=== PATIENT | male | born 1950 | race Caucasian/White ===

== ENCOUNTER 2017-04-11 01:15 | Inpatient (IN) | payer BC, OTHER ==
[2017-04-11] MEDS ORDERED: hydrALAZINE HCL 20 MG/ML 1 ML VIAL IVP STA (01:32)
--- NOTE | 2017-04-11 01:51 | ED ---
General Adult HPI - General Chief complaint: Chest Pain Stated complaint: Chest Pain Time Seen by Provider: 04/11/17 01:23 Source: patient, family, RN notes reviewed Mode of arrival: ambulatory Limitations: no limitations - History of Present Illness Initial comments: 66-year-old male presents for evaluation chest pain. Patient had 2 episodes of sharp left sided chest pain. These began at approximately 8 PM. He then developed some chest tightness which was substernal. This did radiate to his left arm. He was at rest during the symptoms. He currently has no chest pain. Denies shortness of breath. Denies nausea vomiting or diarrhea. He did have one episode of lightheadedness several weeks ago which was not associated with chest pain. Patient does have significant family history of coronary artery disease, his father at age 55 of heart attack. He is a smoker. Past medical history includes hypertension. Patient denies any leg swelling or calf tenderness. No nausea vomiting or diarrhea. No abdominal pain. - Related Data Home Medications Medication Instructions Recorded Confirmed Aspirin [Adult Low Dose Aspirin EC] 81 mg PO DAILY 06/16/16 04/11/17 Lisinopril [Zestril] 20 mg PO BID 06/16/16 04/11/17 Omeprazole 20 mg PO DAILY 06/16/16 04/11/17 Allergies Allergy/AdvReac Type Severity Reaction Status Date / Time No Known Allergies Allergy Verified 04/11/17 01:21 Review of Systems ROS Statement: Those systems with pertinent positive or pertinent negative responses have been documented in the HPI. ROS Other: All systems not noted in ROS Statement are negative. Past Medical History Past Medical History: Hypertension History of Any Multi-Drug Resistant Organisms: None Reported Past Surgical History: Orthopedic Surgery Additional Past Surgical History / Comment(s): RIGHT LEG SURGERY, CYST REMOVED FROM LEFT LEG Past Anesthesia/Blood Transfusion Reactions: No Reported Reaction Past Psychological History: No Psychological Hx Reported Smoking Status: Current every day smoker Past Alcohol Use History: Rare Past Drug Use History: None Reported - Past Family History Mother Family Medical History: No Reported History General Exam Limitations: no limitations General appearance: alert, in no apparent distress Head exam: Present: atraumatic, normocephalic Eye exam: Present: normal appearance, PERRL ENT exam: Present: normal exam, normal oropharynx, mucous membranes moist Neck exam: Present: normal inspection. Absent: tenderness, meningismus Respiratory exam: Present: normal lung sounds bilaterally. Absent: respiratory distress, wheezes Cardiovascular Exam: Present: regular rate, normal rhythm GI/Abdominal exam: Present: soft. Absent: distended, tenderness Extremities exam: Present: normal inspection, normal capillary refill. Absent: pedal edema Neurological exam: Present: alert, oriented X3, CN II-XII intact. Absent: motor sensory deficit Psychiatric exam: Present: normal affect, normal mood Skin exam: Present: warm, dry. Absent: cyanosis, diaphoretic Course Vital Signs 04/11/17 04/11/17 04/11/17 01:18 01:30 01:32 Temperature 97.7 F Pulse Rate 60 58 L Respiratory 18 17 Rate Blood Pressure 199/95 216/105 204/91 O2 Sat by Pulse 100 97 Oximetry 04/11/17 04/11/17 04/11/17 01:55 02:30 03:00 Temperature Pulse Rate 55 L 62 62 Respiratory 17 16 17 Rate Blood Pressure 172/84 152/77 157/86 O2 Sat by Pulse 95 97 96 Oximetry EKG Findings - EKG Comments: EKG Findings:: EKG shows sinus bradycardia with a ventricular rate of 56,. 164 , QRS duration 76, QTC 403, there is no ST segment elevation or depression Medical Decision Making - Medical Decision Making 66-year-old male with past medical history of hypertension, and current tobacco use presents with left-sided chest pain. Initially sharp in nature then progressed to central pressure. Pain is currently resolved. He has no chest pain while the emergency department. EKG shows sinus bradycardia rate of 56, no signs of ischemia or infarction. Laboratory studies including CBC, CMP, and cardiac enzymes unremarkable. Patient is given an aspirin in the emergency department. Chest x-ray shows no acute findings. Patient does several risk factors, and family history of CAD. Patient will be placed in observation for cardiology evaluation. Diagnosis: Chest pain - Lab Data Result diagrams: 04/11/17 01:38 04/11/17 01:38 Lab Results 04/11/17 04/11/17 04/11/17 Range/Units 01:38 01:38 01:38 WBC 9.6 (3.8-10.6) k/uL RBC 4.91 (4.30-5.90) m/uL Hgb 14.9 (13.0-17.5) gm/dL Hct 45.1 (39.0-53.0) % MCV 91.9 (80.0-100.0) fL MCH 30.2 (25.0-35.0) pg MCHC 32.9 (31.0-37.0) g/dL RDW 14.2 (11.5-15.5) % Plt Count 503 H (150-450) k/uL Neutrophils % 45 % Lymphocytes % 39 % Monocytes % 9 % Eosinophils % 4 % Basophils % 1 % Neutrophils # 4.3 (1.3-7.7) k/uL Lymphocytes # 3.8 (1.0-4.8) k/uL Monocytes # 0.8 (0-1.0) k/uL Eosinophils # 0.4 (0-0.7) k/uL Basophils # 0.1 (0-0.2) k/uL PT (9.0-12.0) sec INR (<1.2) APTT (22.0-30.0) sec D-Dimer (<0.60) mg/L FEU Sodium 138 (137-145) mmol/L Potassium 4.2 (3.5-5.1) mmol/L Chloride 105 (98-107) mmol/L Carbon Dioxide 24 (22-30) mmol/L Anion Gap 9 mmol/L BUN 17 (9-20) mg/dL Creatinine 0.90 (0.66-1.25) mg/dL Est GFR (MDRD) Af Amer >60 (>60 ml/min/1.73 sqM) Est GFR (MDRD) Non-Af >60 (>60 ml/min/1.73 sqM) Glucose 100 H (74-99) mg/dL Calcium 10.1 (8.4-10.2) mg/dL Magnesium 2.0 (1.6-2.3) mg/dL Total Bilirubin 0.5 (0.2-1.3) mg/dL AST 20 (17-59) U/L ALT 39 (21-72) U/L Alkaline Phosphatase 71 (38-126) U/L Total Creatine Kinase 86 (55-170) U/L CK-MB (CK-2) 1.4 (0.0-2.4) ng/mL CK-MB (CK-2) Rel Index 1.6 Troponin I <0.012 (0.000-0.034) ng/mL NT-Pro-B Natriuret Pep pg/mL Total Protein 6.5 (6.3-8.2) g/dL Albumin 3.8 (3.5-5.0) g/dL Lipase 156 (23-300) U/L 04/11/17 04/11/17 Range/Units 01:38 01:38 WBC (3.8-10.6) k/uL RBC (4.30-5.90) m/uL Hgb (13.0-17.5) gm/dL Hct (39.0-53.0) % MCV (80.0-100.0) fL MCH (25.0-35.0) pg MCHC (31.0-37.0) g/dL RDW (11.5-15.5) % Plt Count (150-450) k/uL Neutrophils % % Lymphocytes % % Monocytes % % Eosinophils % % Basophils % % Neutrophils # (1.3-7.7) k/uL Lymphocytes # (1.0-4.8) k/uL Monocytes # (0-1.0) k/uL Eosinophils # (0-0.7) k/uL Basophils # (0-0.2) k/uL PT 10.2 (9.0-12.0) sec INR 1.0 (<1.2) APTT 25.0 (22.0-30.0) sec D-Dimer 0.50 (<0.60) mg/L FEU Sodium (137-145) mmol/L Potassium (3.5-5.1) mmol/L Chloride (98-107) mmol/L Carbon Dioxide (22-30) mmol/L Anion Gap mmol/L BUN (9-20) mg/dL Creatinine (0.66-1.25) mg/dL Est GFR (MDRD) Af Amer (>60 ml/min/1.73 sqM) Est GFR (MDRD) Non-Af (>60 ml/min/1.73 sqM) Glucose (74-99) mg/dL Calcium (8.4-10.2) mg/dL Magnesium (1.6-2.3) mg/dL Total Bilirubin (0.2-1.3) mg/dL AST (17-59) U/L ALT (21-72) U/L Alkaline Phosphatase (38-126) U/L Total Creatine Kinase (55-170) U/L CK-MB (CK-2) (0.0-2.4) ng/mL CK-MB (CK-2) Rel Index Troponin I (0.000-0.034) ng/mL NT-Pro-B Natriuret Pep 133 pg/mL Total Protein (6.3-8.2) g/dL Albumin (3.5-5.0) g/dL Lipase (23-300) U/L Disposition Clinical Impression: Chest pain Disposition: ADMITTED IP TO THIS [facility] Condition: Stable Referrals: Forest Melara DO [Primary Care Provider] - 1-2 days Decision to Admit Reason: Admit from EC Decision Date: 04/11/17 Decision Time: 03:37
[2017-04-11 01:55] LABS: Basophils # (A) 0.1 k/uL (0-0.2); Basophils % (A) 1 %; CH 31.5; CHCM 34.5; Eosinophils # (A) 0.4 k/uL (0-0.7); Eosinophils % (A) 4 %; HCT 45.1 % (39.0-53.0); HGB 14.9 gm/dL (13.0-17.5); Luc # (Auto) 0.22; Luc % (Auto) 2; Lymphocytes # (A) 3.8 k/uL (1.0-4.8); Lymphocytes % (A) 39 %; MCH 30.2 pg (25.0-35.0); MCHC 32.9 g/dL (31.0-37.0); MCV 91.9 fL (80.0-100.0); Mean Platelet Volume 6.7; Monocytes # (A) 0.8 k/uL (0-1.0); Monocytes % (A) 9 %; Neutrophils # (A) 4.3 k/uL (1.3-7.7); Neutrophils % (A) 45 %; RBC 4.91 m/uL (4.30-5.90); RDW 14.2 % (11.5-15.5); WBC 9.6 k/uL (3.8-10.6); WBC (Perox) 9.14
[2017-04-11 01:59] LABS: ALT 39 U/L (21-72); AST 20 U/L (17-59); Alkaline Phosphatase 71 U/L (38-126); Anion Gap 9 mmol/L; Blood Urea Nitrogen 17 mg/dL (9-20); Calcium 10.1 mg/dL (8.4-10.2); Carbon Dioxide 24 mmol/L (22-30); Chloride 105 mmol/L (98-107); Glucose 100 mg/dL (74-99); Non-African American GFR(MDRD) >60 (>60 ml/min/1.73 sqM); Potassium 4.2 mmol/L (3.5-5.1); Sodium 138 mmol/L (137-145); Total Bilirubin 0.5 mg/dL (0.2-1.3); Total Protein 6.5 g/dL (6.3-8.2)
[2017-04-11 02:04] LABS: Prothrombin Time 10.2 sec (9.0-12.0)
[2017-04-11 02:09] LABS: Creatine Kinase 86 U/L (55-170)
[2017-04-11 02:22] LABS: Creatine Kinase MB 1.4 ng/mL (0.0-2.4); Troponin I <0.012 ng/mL (0.000-0.034)
--- NOTE | 2017-04-11 02:44 | XR ---
EXAM: XR Chest, 2 Views CLINICAL HISTORY: Reason: Chest Pain TECHNIQUE: Frontal and lateral views of the chest. COMPARISON: 06/16/16 FINDINGS: Lungs: Unremarkable. No consolidation. Pleural space: Unremarkable. No pneumothorax. Heart: Unremarkable. No cardiomegaly. Mediastinum: Unremarkable. Bones/joints: Unremarkable. IMPRESSION: Normal chest x-rays.
[2017-04-11] MEDS ORDERED: ASPIRIN 325 MG TAB PO STA (03:31)
[2017-04-11] MEDS ORDERED: NALOXONE 0.4 MG/ML 1 ML VIAL IV PRN (03:32)
[2017-04-11] MEDS ORDERED: ONDANSETRON 4 MG/2 ML VIAL IVP PRN (03:32)
[2017-04-11] MEDS ORDERED: MORPHINE SULFATE 4 MG/ML SYRINGE IV PRN (03:32)
[2017-04-11] MEDS: SODIUM CHLORIDE 0.9% 1,000 ML IV SCH ×2 (03:52→18:10)
[2017-04-11 04:42] VITALS: BMI 30.9
[2017-04-11 07:24] LABS: Creatine Kinase 75 U/L (55-170)
[2017-04-11 07:35] LABS: Creatine Kinase MB 1.5 ng/mL (0.0-2.4); Troponin I <0.012 ng/mL (0.000-0.034)
[2017-04-11] MEDS: ASPIRIN 81 MG CHEW PO SCH (11:41)
[2017-04-11] MEDS: LISINOPRIL 20 MG TAB PO SCH ×2 (11:41→21:21)
[2017-04-11 11:45] LABS: Cholesterol 290 mg/dL (<200); HDL Cholesterol 25 mg/dL (40-60)
--- NOTE | 2017-04-11 12:02 | P.STRESS ---
- Stress Test Note Stress Test Results/Findings: Exam Performed: stress test Exam Date: 04/11/17 Reason for Exam: cp Height: 6 ft Weight: 103.4 kg Protocol: Stage: Duration of Exercise: 8 min Resting Heart Rate: 76 Resting Blood Pressure: 134/69 Maximum Achieved Heart Rate: 155 Maximum Achieved Blood Pressure: 214/76 85% PMHR: 145 100% PMHR: 170 METS: 9.3 Technologist Comment: Stress Test Results/Findings: This 66-year-old gentleman exercised for 7 min achieving 85% of the predicted heart rate. EKG taken during exercise showed about 1- 1.[address] depression in the inferolateral leads. These changes were not associated with any chest pain but patient became short of breath. These changes persisted for about 8-10 minutes in the post exercise period. Echo data: Baseline echo images showed normal wall motion and thickening. Exercise echo images are suboptimal and wall motion abnormalities in the inferobasal and inferoseptal wall cannot be excluded. FINAL IMPRESSION: #1. Probably abnormal stress test #2. Patient did not experience any chest pain. #3. Patient became short of breath. #4. Ischemia in the inferobasal and insufflated cannot be excluded on the stress echocardiogram because of suboptimal views
--- NOTE | 2017-04-11 13:00 | ECHOF ---
Referral Reason:chest pain MEASUREMENTS -------- HEIGHT: 180.3 cm WEIGHT: 103.0 kg BP: 158/78 IVSd: 0.9 cm (0.6 - 1.1) LVIDd: 4.5 cm (3.9 - 5.3) LVPWd: 1.3 cm (0.6 - 1.1) IVSs: 1.8 cm LVIDs: 2.7 cm LVPWs: 1.4 cm Ao Diam: 3.5 cm (2.0 - 3.7) AV Cusp: 2.0 cm (1.5 - 2.6) LA Diam: 1.9 cm (2.7 - 3.8) MV EXCURSION: 18.742 mm (> 18.000) MV EF SLOPE: 92 mm/s (70 - 150) EPSS: 0.3 cm MV E Franklin: 0.61 m/s MV DecT: 292 ms MV A Franklin: 0.58 m/s MV E/A Ratio: 1.04 RAP: 5.00 mmHg RVSP: 16.42 mmHg FINDINGS -------- Sinus rhythm. This was a technically adequate study. There is borderline concentric left ventricular hypertrophy. Overall left ventricular systolic function is normal with, an EF between 55 - 60 %. The right ventricle is normal in size and function. The left atrium is normal in size. The right atrium is normal in size. The aortic valve is trileaflet, and appears structurally normal. No aortic stenosis or regurgitation. Mild mitral regurgitation is present. Mild tricuspid regurgitation present. The right ventricular systolic pressure, as measured by Doppler, is 16.42mmHg. Pulmonic valve appears structurally normal. The aortic root size is normal. The pericardium is normal. CONCLUSIONS -------- 1. Sinus rhythm. 2. Mild tricuspid regurgitation present. 3. The right ventricular systolic pressure, as measured by Doppler, is 16.42mmHg. 4. Pulmonic valve appears structurally normal. 5. The aortic root size is normal. 6. The pericardium is normal. 7. This was a technically adequate study. 8. There is borderline concentric left ventricular hypertrophy. 9. Overall left ventricular systolic function is normal with, an EF between 55 - 60 %. 10. The right ventricle is normal in size and function. 11. The left atrium is normal in size. 12. The right atrium is normal in size. 13. The aortic valve is trileaflet, and appears structurally normal. No aortic stenosis or regurgitation. 14. Mild mitral regurgitation is present. PREMI[employer] C[employer] CANCELLATION CLERK: Velia Reina RDCS
[2017-04-11 14:20] LABS: Creatine Kinase 103 U/L (55-170)
[2017-04-11 14:32] LABS: Creatine Kinase MB 1.5 ng/mL (0.0-2.4); Troponin I <0.012 ng/mL (0.000-0.034)
--- NOTE | 2017-04-11 14:38 | P.CRDCN ---
History of Present Illness Consult date: 04/11/17 History of present illness: This is a 66-year-old male. Past medical history significant for hypertension, hyperlipidemia and chronic tobacco abuse. The patient states he has attempted to take different cholesterol medication and could not tolerate any periods at this time he does not take any cholesterol medication. He currently takes lisinopril 20 mg twice a day omeprazole 20 mg daily and aspirin 81 mg daily.. Patient presents with complaints of sharp stabbing pain to the left chest wall at approximately 8 PM last night while sitting down. He states this pain went away immediately on its own. Hours later he noticed a heaviness in the mid sternal region very mild associated with some left arm pain. He states he has noticed some left arm soreness over the previous couple of days but didn't associated with anything at the time. The pain was ongoing and lasted for most of the night. It has decreased in nature but is still there. He denies associated shortness of breath, dizziness, nausea, palpitations or vomiting. The pain is not reproducible and not associated with deep inspiration. EKG done shows sinus bradycardia with non-specific ST abnormalities, rate of 56 beats per minute. Comparison to an EKG from May 2016 and this appears consistent. Hemoglobin 14.9, platelets 503, potassium 4.2, BUN and 17, creatinine 0.90, d- dimer 0.50 and BNP 133, troponins negative 2. Chest x-ray showed no acute cardiopulmonary process. Review of Systems REVIEW OF SYSTEMS: Mild chest discomfort. No shortness of breath. No diaphoresis. Denies headache, dizziness, blurred vision, double vision. No dyspnea on exertion. Patient denies any stomach discomfort. No nausea, vomiting. No hematochezia. No hematemesis. Denies any black stools or blood in his stools. No syncope. No palpitations. No cough. No recent fever or chills. No muscle weakness or numbness. Past Medical History Past Medical History: CVA/TIA, Hyperlipidemia, Hypertension Additional Past Medical History / Comment(s): GERD, TIA 8 yrs ago History of Any Multi-Drug Resistant Organisms: None Reported Past Surgical History: Orthopedic Surgery Additional Past Surgical History / Comment(s): RIGHT LEG SURGERY, CYST REMOVED FROM LEFT LEG Past Anesthesia/Blood Transfusion Reactions: No Reported Reaction Past Psychological History: No Psychological Hx Reported Smoking Status: Current every day smoker Past Alcohol Use History: Rare Past Drug Use History: None Reported - Past Family History Father Family Medical History: Myocardial Infarction ([place]) Additional Family Medical History / Comment(s): at 55 from [place] Mother Family Medical History: No Reported History Medications and Allergies Home Medications Medication Instructions Recorded Confirmed Type Aspirin [Adult Low Dose Aspirin EC] 81 mg PO DAILY 06/16/16 04/11/17 History Lisinopril [Zestril] 20 mg PO BID 06/16/16 04/11/17 History Omeprazole 20 mg PO DAILY 06/16/16 04/11/17 History Allergies Allergy/AdvReac Type Severity Reaction Status Date / Time No Known Allergies Allergy Verified 04/11/17 07:38 Physical Exam Vitals: Vital Signs Temp Pulse Pulse Resp BP BP Pulse Ox 04/11/17 08:00 98.1 F 63 16 145/88 96 04/11/17 04:59 159/80 04/11/17 04:10 97.9 F 59 L 16 170/88 97 04/11/17 04:00 58 L 16 04/11/17 03:47 58 L 17 153/86 97 04/11/17 03:00 62 17 157/86 96 04/11/17 02:30 62 16 152/77 97 04/11/17 01:55 55 L 17 172/84 95 04/11/17 01:32 58 L 17 204/91 97 04/11/17 01:30 216/105 04/11/17 01:18 97.7 F 60 18 199/95 100 Intake and Output 04/10/17 04/11/17 04/11/17 22:59 06:59 14:59 Other: Voiding Method Toilet Toilet # Voids 2 1 Weight 103.4 kg GENERAL: This is a 66-year-old male in no apparent distress at the time of my examination. HEENT: Head is atraumatic, normocephalic. Pupils are equal, round. Sclerae anicteric. Conjunctivae are clear. Mucous membranes of the mouth are moist. Neck is supple. There is no jugular venous distention. No carotid bruit is heard. LUNGS: Clear to auscultation no wheezes, rales or rhonchi. No chest wall tenderness is noted on palpation or with deep breathing. HEART: Regular rate and rhythm without murmurs, rubs or gallops. S1 and S2 heard. ABDOMEN: Soft, nontender. Bowel sounds are heard. No organomegaly noted. EXTREMITIES: 2+ peripheral pulses with no evidence of peripheral edema and no calf tenderness noted. NEUROLOGIC: Patient is awake, alert and oriented x3. Results 04/11/17 01:38 04/11/17 01:38 Cardiac Enzymes 04/11/17 04/11/17 04/11/17 Range/Units 01:38 01:38 06:32 AST 20 (17-59) U/L CK-MB (CK-2) 1.4 1.5 (0.0-2.4) ng/mL Troponin I <0.012 <0.012 (0.000-0.034) ng/mL Coagulation 04/11/17 Range/Units 01:38 PT 10.2 (9.0-12.0) sec APTT 25.0 (22.0-30.0) sec CBC 04/11/17 Range/Units 01:38 WBC 9.6 (3.8-10.6) k/uL RBC 4.91 (4.30-5.90) m/uL Hgb 14.9 (13.0-17.5) gm/dL Hct 45.1 (39.0-53.0) % Plt Count 503 H (150-450) k/uL Comprehensive Metabolic Panel 04/11/17 Range/Units 01:38 Sodium 138 (137-145) mmol/L Potassium 4.2 (3.5-5.1) mmol/L Chloride 105 (98-107) mmol/L Carbon Dioxide 24 (22-30) mmol/L BUN 17 (9-20) mg/dL Creatinine 0.90 (0.66-1.25) mg/dL Glucose 100 H (74-99) mg/dL Calcium 10.1 (8.4-10.2) mg/dL AST 20 (17-59) U/L ALT 39 (21-72) U/L Alkaline Phosphatase 71 (38-126) U/L Total Protein 6.5 (6.3-8.2) g/dL Albumin 3.8 (3.5-5.0) g/dL Current Medications Generic Name Dose Route Start Last Admin Trade Name Freq PRN Reason Stop Dose Admin Aspirin 81 mg 04/11/17 09:00 Aspirin PO DAILY REN Sodium Chloride 1,000 mls @ 75 mls/hr 04/11/17 03:45 04/11/17 03:52 Saline 0.9% IV 75 mls/hr .[id number] REN Administration Lisinopril 20 mg 04/11/17 09:00 Zestril PO BID REN Morphine Sulfate 4 mg 04/11/17 03:32 Morphine Sulfate (Inj) IV Q4HR PRN Severe Pain Naloxone HCl 0.2 mg 04/11/17 03:32 Narcan IV Q2M PRN Opioid Reversal Ondansetron HCl 4 mg 04/11/17 03:32 Zofran IVP Q8HR PRN Nausea And Vomiting Pantoprazole Sodium 40 mg 04/11/17 09:00 Protonix PO DAILY REN Intake and Output 04/10/17 04/11/17 04/11/17 22:59 06:59 14:59 Other: Voiding Method Toilet Toilet # Voids 2 1 Weight 103.4 kg 04/11/17 01:38 04/11/17 01:38 EKG Interpretations (text) EKG indicates sinus bradycardia heart rate [address] abnormality. Assessment and Plan Plan: ASSESSMENT 1. Chest pain PLAN Due to the nature and presentation of this patient's pain and is suspect that there is an acute coronary event occurring. The patient has several risk factors including obesity, hypertension, chronic tobacco abuse, hyper-lipidemia and significant family history. We have recommended patient undergo cardiac catheterization with Dr. Walsh. I have discussed the risks, benefits and alternative therapies for the above-mentioned procedure and for both sedation/ analgesia as well as necessary blood product administration, if indicated, as they pertain to this patient. The patient has indicated understanding and has requested to undergo a less invasive testing. We advised the patient of our recommendation that heart catheterization would be more definitive. The patient still states that he would prefer a stress test at this time. We will move forward with a stress echocardiogram as well as a full echocardiogram. Further recommendations to follow pending testing. Nurse Practitioner note has been reviewed, I agree with a documented findings and plan of care. Patient was seen and examined.
--- NOTE | 2017-04-11 14:41 | P.PN ---
Progress Note - Text Stress echocardiogram was abnormal. Patient did not experience any chest pain but he did become acutely short of breath. Ischemia i cannot be excluded. During peak exercise showed 1-1.[address] depression in the inferiorolateral leads. These changes persisted for 8-10 minutes into recovery. Echocardiogram reveals preserved left ventricular function with an ejection fraction of 55-60%, mild tricuspid regurgitation, borderline concentric left ventricular hypertrophy and mild mitral regurgitation. At this time we can recommend the patient move forward with heart catheterization to rule out an acute coronary event. This procedure was again discussed with the patient in great detail with his and son at the bedside. I have discussed the risks, benefits and alternative therapies for the above-mentioned procedure and for both sedation/analgesia as well as necessary blood product administration, if indicated, as they pertain to this patient. The patient has indicated understanding and will need some time to consider. At this time we will await the patient's decision as far as moving forward with the catheterization. We will place him nothing by mouth after midnight and tentatively scheduled the procedure for tomorrow morning.
[2017-04-11] MEDS ORDERED: ENOXAPARIN 80 MG/0.8 ML SYRINGE SQ STA (15:21)
[2017-04-11] MEDS ORDERED: SODIUM CHLORIDE 0.9% 1,000 ML in EMPTY BAG 1 BAG IV ONE (15:23)
[2017-04-11] MEDS ORDERED: ATORVASTATIN 80 MG TAB PO STA (15:23)
--- NOTE | 2017-04-11 15:39 | P.HPIM ---
History of Present Illness H&P Date: 04/11/17 Chief Complaint: Chest pain This is a 66-year-old male patient of Dr. Braden'marcos with a past medical history of TIA 8 years ago, hyperlipidemia, hypertension, and gastroesophageal reflux disease. Patient gives history that he had a jabbing pain in the left lateral anterior chest wall while he was sitting. It later felt a little bit heavy and he also complained of left elbow pain as well. Over the past month he has had little "pricks" of pain on and off as well as continued discomfort in the left elbow which is not similar to his arthritis. He states he's had a little shortness of breath. Patient came into [facility] emergency center for evaluation. Patient was placed in the observation unit and underwent stress test which was positive and he is scheduled tentatively for heart catheterization for tomorrow. Patient states that he believes he will undergo this treatment although he was hesitant. Troponins have been negative on 3 draws. Triglycerides 191, cholesterol 290, LDL 227, HDL 25. EKG was a sinus bradycardia with nonspecific ST abnormalities. Echocardiogram reveals EF 55-60%, mild tricuspid regurgitation, borderline concentric left ventricular hypertrophy, mild mitral regurgitation. Review of Systems All systems: negative Constitutional: Denies chills, Denies fever Eyes: denies blurred vision, denies pain Ears, nose, mouth and throat: Denies headache, Denies sore throat Cardiovascular: Reports chest pain, Denies shortness of breath Respiratory: Denies cough Gastrointestinal: Denies abdominal pain, Denies diarrhea, Denies nausea, Denies vomiting Musculoskeletal: Denies myalgias Integumentary: Denies pruritus, Denies rash Neurological: Denies numbness, Denies weakness Psychiatric: Denies anxiety, Denies depression Endocrine: Denies fatigue, Denies weight change Past Medical History Past Medical History: CVA/TIA, Hyperlipidemia, Hypertension Additional Past Medical History / Comment(s): GERD, TIA 8 yrs ago History of Any Multi-Drug Resistant Organisms: None Reported Past Surgical History: Orthopedic Surgery Additional Past Surgical History / Comment(s): RIGHT LOWER LEG ORIF, CYST REMOVED FROM LEFT LEG Past Anesthesia/Blood Transfusion Reactions: No Reported Reaction Past Psychological History: No Psychological Hx Reported Smoking Status: Current every day smoker Past Alcohol Use History: Rare Additional Past Alcohol Use History / Comment(s): Patient is a smoker one and half packs per day for 37 years. He denies any medical marijuana, marijuana, street drug use. He drinks alcohol rarely. He is retired from [employer] in [place] Past Drug Use History: None Reported - Past Family History Father Family Medical History: Myocardial Infarction ([place]) Additional Family Medical History / Comment(s): at 55 from [place] Mother Family Medical History: No Reported History Additional Family Medical History / Comment(s): Mother at age 95 with history of hypertension, coronary artery disease status post CABG 3 vessel at age 75. Brother(s) Additional Family Medical History / Comment(s): Patient has 2 brothers and is unsure of their past mental history. Sister(s) Additional Family Medical History / Comment(s): Patient had 7 sisters. 3 sisters have , one from ovarian cancer, 2 from breast cancer. Medications and Allergies Home Medications Medication Instructions Recorded Confirmed Type Aspirin [Adult Low Dose Aspirin EC] 81 mg PO DAILY 06/16/16 04/11/17 History Lisinopril [Zestril] 20 mg PO BID 06/16/16 04/11/17 History Omeprazole 20 mg PO DAILY 06/16/16 04/11/17 History Allergies Allergy/AdvReac Type Severity Reaction Status Date / Time No Known Allergies Allergy Verified 04/11/17 07:38 Physical Exam Vitals: Vital Signs Temp Pulse Pulse Resp BP BP Pulse Ox 04/11/17 12:40 78 16 161/89 94 L 04/11/17 12:00 97.8 F 78 16 173/85 97 04/11/17 08:00 98.1 F 63 16 145/88 96 04/11/17 04:59 159/80 04/11/17 04:10 97.9 F 59 L 16 170/88 97 04/11/17 04:00 58 L 16 04/11/17 03:47 58 L 17 153/86 97 04/11/17 03:00 62 17 157/86 96 04/11/17 02:30 62 16 152/77 97 04/11/17 01:55 55 L 17 172/84 95 04/11/17 01:32 58 L 17 204/91 97 04/11/17 01:30 216/105 04/11/17 01:18 97.7 F 60 18 199/95 100 Intake and Output 08/20/17 08/21/17 08/21/17 22:59 06:59 14:59 Other: Voiding Method Toilet Toilet # Voids 2 1 Weight 103.4 kg Gen: This is a 66-year-old male. He is in bed and appears to be comfortable. No acute distress noted. HEENT: Head is atraumatic, normocephalic. Pupils equal, round. Sclerae is anicteric. NECK: Supple. No JVD. No lymphadenopathy. No thyromegaly. LUNGS: Clear to auscultation. No wheezes or rhonchi. No intercostal retractions. HEART: Regular rate and rhythm. No murmur. ABDOMEN: Soft. Bowel sounds are present. No masses. No tenderness. EXTREMITIES: No pedal edema. No calf tenderness. Dorsalis pedis +2 bilaterally. NEUROLOGICAL: Patient is awake, alert and oriented x3. Cranial nerves 2 through 12 are grossly intact. Results CBC & Chem 7: 04/11/17 01:38 04/11/17 01:38 Labs: Abnormal Lab Results - Last 24 Hours (Table) 04/11/17 04/11/17 04/11/17 Range/Units 01:38 01:38 06:32 Plt Count 503 H (150-450) k/uL Glucose 100 H (74-99) mg/dL Triglycerides 191 H (<150) mg/dL Cholesterol 290 H (<200) mg/dL LDL Cholesterol, Calc 227 H (0-99) mg/dL HDL Cholesterol 25 L (40-60) mg/dL Thrombosis Risk Factor Assmnt - DVT/VTE Prophylaxis DVT/VTE Prophylaxis: Pharmacologic Prophylaxis ordered - Choose All That Apply Each Risk Factor Represents 2 Points: Age 61-74 years Thrombosis Risk Factor Assessment Total Risk Factor Score: 2 Thrombosis Risk Factor Assessment Level: Low Risk Assessment and Plan Plan: 1. Chest pain, failed stress test. Cardiac catheterization tomorrow. Patient is followed by cardiology. 3 troponins are negative. Continue aspirin 81 mg daily. 2. Hyperlipidemia. Patient has been started on Lipitor 80 mg daily. 3. Hypertension. Continue lisinopril 20 mg twice daily, patient started on metoprolol tartrate 25 mg twice daily. 4. Gastroesophageal reflux disease. Protonix. Patient will be admitted to the hospital for a minimum of 2 night stay. Discharge plan: He turned home Impression and plan of care have been directed as dictated by the signing physician. More Pacheco nurse practitioner acting as scribe for signing physician.
[2017-04-11] MEDS: PANTOPRAZOLE 40 MG TABLET PO SCH (16:21)
[2017-04-11] MEDS: METOPROLOL TARTRATE 25 MG TAB PO SCH (16:25)
[2017-04-12] MEDS ORDERED: ASPIRIN 325 MG TAB PO ONE ×2 (06:00)
[2017-04-12] MEDS: SODIUM CHLORIDE 0.9% 1,000 ML IV SCH ×5 (06:47→23:06)
[2017-04-12] MEDS: METOPROLOL TARTRATE 25 MG TAB PO SCH ×2 (07:28→20:06)
[2017-04-12] MEDS: ASPIRIN 81 MG CHEW PO SCH (07:28)
[2017-04-12] MEDS: PANTOPRAZOLE 40 MG TABLET PO SCH (07:28)
[2017-04-12] MEDS: LISINOPRIL 20 MG TAB PO SCH ×2 (07:28→20:06)
[2017-04-12] MEDS ORDERED: LIDOCAINE 2% INJ 20 MG/ML (20 ML MDV) ONE (08:34)
[2017-04-12] MEDS ORDERED: SODIUM CHLORIDE 0.9% 1,000 ML IV ONE (08:49)
[2017-04-12] MEDS ORDERED: MIDAZOLAM 2 MG/2 ML VIAL ONE (08:50)
[2017-04-12] MEDS ORDERED: fentaNYL (PF) 50 MCG/ML 2 ML AMP ONE (08:50)
[2017-04-12] MEDS ORDERED: fentaNYL (PF) 50 MCG/ML 2 ML AMP IV ONE (08:59)
[2017-04-12] MEDS ORDERED: MIDAZOLAM 2 MG/2 ML VIAL IV ONE (08:59)
[2017-04-12] MEDS ORDERED: LIDOCAINE 2% INJ 20 MG/ML SQ ONE (09:03)
--- NOTE | 2017-04-12 09:12 | ECHOS ---
Stress Test Results/Findings: Exam Performed: stress test Exam Date: 04/11/17 Reason for Exam: cp Height: 6 ft Weight: 103.4 kg Protocol: Stage: Duration of Exercise: 8 min Resting Heart Rate: 76 Resting Blood Pressure: 134/69 Maximum Achieved Heart Rate: 155 Maximum Achieved Blood Pressure: 214/76 85% PMHR: 145 100% PMHR: 170 METS: 9.3 Technologist Comment: Stress Test Results/Findings: This 66-year-old gentleman exercised for 7 min achieving 85% of the predicted heart rate. EKG taken during exercise showed about 1- 1.[address] depression in the inferolateral leads. These changes were not associated with any chest pain but patient became short of breath. These changes persisted for about 8-10 minutes in the post exercise period. Echo data: Baseline echo images showed normal wall motion and thickening. Exercise echo images are suboptimal and wall motion abnormalities in the inferobasal and inferoseptal wall cannot be excluded. FINAL IMPRESSION: #1. Abnormal stress test #2. Patient did not experience any chest pain. #3. Patient became short of breath. #4. Ischemia in the inferobasal and inferioseptal area cannot be excluded on the stress echocardiogram because of suboptimal views MTDD
[2017-04-12] MEDS ORDERED: NITROGLYCERIN OINT 1 INCH/GM PACKET TOPICAL ONE ×2 (09:20→09:25)
[2017-04-12] MEDS ORDERED: hydrALAZINE HCL 20 MG/ML 1 ML VIAL ONE (09:29)
[2017-04-12] MEDS ORDERED: hydrALAZINE HCL 20 MG/ML 1 ML VIAL IV ONE (09:32)
[2017-04-12] MEDS ORDERED: LABETALOL 5 MG/ML VIAL MDV IVP STA (09:45)
[2017-04-12] MEDS ORDERED: RX INFO: IV CONTRAST WAS GIVEN 1 EACH MISC MISCELLANE PRN (09:46)
[2017-04-12] MEDS ORDERED: ISOSORBIDE MONONITRATE ER 30 MG TAB.ER.24H PO STA (09:50)
[2017-04-12] MEDS ORDERED: NITROGLYCERIN SL TABS 0.4 MG TAB SUBLINGUAL PRN (09:51)
--- NOTE | 2017-04-12 09:59 | P.PCN ---
Date of Procedure: 04/12/17 Preoperative Diagnosis: Unstable angina and positive stress test Postoperative Diagnosis: Triple-vessel disease Procedure(s) Performed: Left heart catheterization with LV gram Implants: Indications for Procedure: Operative Findings: Description of Procedure: HISTORY: This is 66-year-old gentleman with history of hypertension smoking and family history of ischemic heart disease is admitted to the hospital with chest pain suggestive of possible unstable angina. His EKGs and cardiac enzymes were negative. Patient was evaluated by stress echocardiogram which showed positive findings. Patient is advised to have a cardiac catheterization for definitive diagnosis. CONSENT:I have discussed the risks, benefits and alternative therapies for the above-mentioned procedure and for both sedation/analgesia as well as necessary blood product administration, if indicated, as they pertain to this patient. The patient has indicated understanding and acceptance of the risks and procedures discussed. PROCEDURE: Patient was brought to the lab in a fasting state. Patient was given some IV sedation. The right groin is infiltrated with lidocaine and right femoral artery was entered using Seldinger technique. A 6-[place] catheter was left in place and selective coronary arteriography and left ventriculography was performed. Patient tolerated the procedure well. Femoral angiogram was performed and Angio-Seal was applied for hemostasis. No immediate complications were noted and patient was transferred to [facility] in a stable condition Conscious Sedation: Versed : 1 mg Fentanyl : 25 g Duration : 25 minutes HEMODYNAMICS: The aortic pressure is about 160-180/90 to 100. Left ankle end- diastolic pressure is 25. There was no gradient across the aortic valve. SELECTIVE CORONARY ARTERIOGRAPHY: [ LEFT MAIN: [Normal length with mild calcification. THE LEFT ANTERIOR DESCENDING CORONARY ARTERY: [Good caliber vessel with a diffuse disease and calcification in the proximal and midportion. There is about 80% eccentric lesion after the first diagonal and another 70% lesion at the origin of the second diagonal. THE LEFT CIRCUMFLEX AND IS CORONARY ARTERY: [This is a fair caliber vessel giving rise to 2 OM branches. The first OM branch has about 50-60% stenosis proximally. THE RIGHT CORONARY ARTERY: [This is totally occluded proximally. There are collaterals filling the distal right coronary artery. This seemed to be moderate in caliber LEFT VENTRICULOGRAPHY: [This is done in 30 right anterior oblique projection. This revealed normal-sized cardiac silhouette with preserved LV function. FINAL IMPRESSION: Triple-vessel disease with significant lesion in the mid LAD and also total occlusion of the RCA PLAN: films are reviewed with the DEANNE Estrella. It is felt that patient is better served with bypass surgery to the LAD and, to the right and probably OM branch of circumflex. PROGNOSIS: Fair with successful therapy.
[2017-04-12] MEDS: amLODIPine 5 MG TAB PO SCH (10:43)
[2017-04-12 12:14] LABS: Basophils # (A) 0.1 k/uL (0-0.2); Basophils % (A) 1 %; CH 30.7; CHCM 34.3; Eosinophils # (A) 0.1 k/uL (0-0.7); Eosinophils % (A) 1 %; HCT 44.1 % (39.0-53.0); HDW 2.47; HGB 15.2 gm/dL (13.0-17.5); Luc # (Auto) 0.16; Luc % (Auto) 2; Lymphocytes # (A) 2.1 k/uL (1.0-4.8); Lymphocytes % (A) 28 %; MCH 30.9 pg (25.0-35.0); MCHC 34.4 g/dL (31.0-37.0); MCV 89.8 fL (80.0-100.0); Monocytes # (A) 0.5 k/uL (0-1.0); Monocytes % (A) 7 %; Neutrophils # (A) 4.6 k/uL (1.3-7.7); Neutrophils % (A) 61 %; RBC 4.91 m/uL (4.30-5.90); RDW 13.4 % (11.5-15.5); WBC 7.6 k/uL (3.8-10.6)
[2017-04-12 12:22] LABS: ALT 32 U/L (21-72); AST 17 U/L (17-59); Alkaline Phosphatase 68 U/L (38-126); Anion Gap 7 mmol/L; Blood Urea Nitrogen 13 mg/dL (9-20); Calcium 9.8 mg/dL (8.4-10.2); Carbon Dioxide 22 mmol/L (22-30); Chloride 109 mmol/L (98-107); Glucose 88 mg/dL (74-99); Non-African American GFR(MDRD) >60 (>60 ml/min/1.73 sqM); Potassium 4.8 mmol/L (3.5-5.1); Sodium 138 mmol/L (137-145); Total Bilirubin 0.5 mg/dL (0.2-1.3); Total Protein 6.3 g/dL (6.3-8.2)
[2017-04-12 12:42] LABS: Prothrombin Time 10.5 sec (9.0-12.0)
[2017-04-12 12:43] LABS: Appearance,Urine Clear (Clear); Bilirubin,Urine Negative (Negative); Glucose,Urine (UA) Negative (Negative); Ketones,Urine Negative (Negative); Leukocyte Esterase,Urine Negative (Negative); Nitrite,Urine Negative (Negative); PH, Urine 7.5 (5.0-8.0); Protein,Urine Negative (Negative); Specific Gravity,Urine 1.023 (1.001-1.035); UA Billing (MACRO vs. MICRO) CHEM; Urobilinogen,Urine <2.0 mg/dL (<2.0)
--- NOTE | 2017-04-12 12:46 | P.GSCN ---
<Umair Briseno - Last Filed: 04/12/17 11:51> History of Present Illness Consult date: 04/12/17 Reason for Consult: Positive stress echocardiogram, and symptomatic triple-vessel coronary artery disease. Requesting physician: Wendi Walsh History of present illness: This is a 66-year-old gentleman who is followed by Dr. Forest Melara on an outpatient basis. He has a past medical history of hypertension, hyperlipidemia , TIA, chronic tobacco use any family history of early onset coronary artery disease as his father at age 55 from a myocardial infarction. The patient has had complaints of episodes chest pain off and on for the last 2 months. Recently, the patient's complaints of chest pain have progressively been getting worse and are increasing in frequency. On 04/11/2017 the patient presented to the emergency department here at [facility] with complaints of chest pain that came on while he was resting. His pain also radiated to his left arm and was associated with some shortness of breath. He denied any complaints of nausea, vomiting, dizziness or diaphoresis. He reports his chest pain was a sharp stabbing pain and was 5 out of 10 on the pain scale when he presented to the emergency department. Subsequently a 12- lead EKG was completed which showed bradycardia with nonspecific ST abnormalities, he had negative troponins 3, and his chest x-ray showed no abnormal findings. Subsequently the patient was evaluated by Dr. Walsh from cardiology associates recommended the patient undergo a stress echocardiogram. On 04/11/2017 the patient underwent a stress echocardiogram which showed about 1-1.[address] depression in his inferior lateral leads. The patient did not experience any chest pain during the stress test although had some shortness of breath. For further evaluation the patient was recommended to undergo a cardiac catheterization. On 04/12/2017 after obtaining consent the patient underwent a cardiac catheterization which demonstrated triple- vessel coronary artery disease with significant lesions to his mid left anterior descending coronary artery, and also a total occlusion of his right coronary artery. Due to the patient's presenting symptoms, positive stress test and cardiac catheterization results a consult was placed for Dr. Vale from cardiothoracic surgery to evaluate the patient. Review of Systems A 14 point review of systems was completed and was negative except for as mentioned in HPI. Past Medical History Past Medical History: CVA/TIA, Hearing Disorder / Deafness (right ear.), Hyperlipidemia, Hypertension Additional Past Medical History / Comment(s): GERD, TIA 8 yrs ago History of Any Multi-Drug Resistant Organisms: None Reported Past Surgical History: Orthopedic Surgery Additional Past Surgical History / Comment(s): RIGHT LEG SURGERY, CYST REMOVED FROM LEFT LEG, nasal surgery for deviated septum. Past Anesthesia/Blood Transfusion Reactions: No Reported Reaction Past Psychological History: No Psychological Hx Reported Smoking Status: Current every day smoker (Smokes 1 pack to 1-1/2 packs per day. He reports he has smoked for about 35 years.) Past Alcohol Use History: Rare (1 drink every 6 months.) Past Drug Use History: None Reported - Past Family History Father Family Medical History: Myocardial Infarction ([place]) Additional Family Medical History / Comment(s): at 55 from [place] Brother(s) Family Medical History: No Reported History Additional Family Medical History / Comment(s): Patient has 2 brothers and is unsure of their past mental history. Sister(s) Additional Family Medical History / Comment(s): Patient had 7 sisters. 3 sisters have , one from ovarian cancer at age 44, 2 from breast cancer 1 at age 60 and the other at age 55. Mother Family Medical History: Coronary Artery Disease (CAD), Hypertension Additional Family Medical History / Comment(s): Mother at age 95 with history of hypertension, coronary artery disease status post CABG 3 vessel at age 75. Medications and Allergies Home Medications Medication Instructions Recorded Confirmed Type Aspirin [Adult Low Dose Aspirin EC] 81 mg PO DAILY 06/16/16 04/11/17 History Lisinopril [Zestril] 20 mg PO BID 06/16/16 04/11/17 History Omeprazole 20 mg PO DAILY 06/16/16 04/11/17 History Allergies Allergy/AdvReac Type Severity Reaction Status Date / Time No Known Allergies Allergy Verified 04/11/17 07:38 Surgical - Exam Vital Signs Temp Pulse Resp BP Pulse Ox 97.7 F 60 18 199/95 100 04/11/17 01:18 04/11/17 01:18 04/11/17 01:18 04/11/17 01:18 04/11/17 01:18 - General well developed, well nourished, no distress, no pain - Eyes PERRL, normal ocular movement - ENT Hard of hearing to his right ear. normal pinna, normal nares, normal mucosa, no congestion - Neck no masses, no bruits, trachea midline, no lymphadectomy, no venous distension - Respiratory normal expansion, normal respiratory effort, clear to percussion, clear to auscultation - Cardiovascular Regular rhythm and rate. S1 and S2 present, negative for S3, gallop or murmur. Remote telemetry showing normal sinus rhythm heart rate 68. Varicosities to his right leg. - Abdomen Abdomen is nondistended, no organomegaly or guarding. Abdomen: soft, non tender, bowel sounds (Active bowel sounds all 4 abdominal quadrants.) - Genitourinary Deferred - Rectum Deferred - Integumentary no rash, no growths, no abnormal pigmentation - Neurologic normal coordination, normal sensation - Musculoskeletal normal gait, normal posture - Psychiatric oriented to time, oriented to person, oriented to place, speech is normal, memory intact Results - Labs 04/11/17 01:38 04/11/17 01:38 Abnormal Lab Results - Last 24 Hours (Table) 04/11/17 Range/Units 06:32 Triglycerides 191 H (<150) mg/dL Cholesterol 290 H (<200) mg/dL LDL Cholesterol, Calc 227 H (0-99) mg/dL HDL Cholesterol 25 L (40-60) mg/dL Diabetes panel 04/11/17 Range/Units 06:32 Triglycerides 191 H (<150) mg/dL HDL Cholesterol 25 L (40-60) mg/dL - Imaging Comments: Cardiac catheterization, stress echocardiogram and 2-D echocardiogram results reviewed. Chest x-ray: report reviewed, image reviewed EKG: image reviewed Assessment and Plan (1) Coronary artery disease Status: Acute (2) Hypertension Status: Acute (3) Hyperlipidemia Status: Acute (4) History of TIA (transient ischemic attack) Status: Acute (5) Family history of premature coronary artery disease Status: Acute (6) Nicotine dependence Status: Acute (7) Chest pain Status: Acute (8) Chest pressure Status: Acute Plan: The patient was seen and examined, preoperative testing has been ordered and the results are pending. Preoperative teaching was initiated and reinforced. I will discuss the case with Dr. Vale. More recommendations to follow as the preoperative testing has been reviewed and completed. Thank you Dr. Walsh for this consult and we look forward to working with you in the care of your patient. Time with Patient: Greater than 30 <Kory Black - Last Filed: 04/20/17 10:59> Surgical - Exam Vital Signs Temp Pulse Resp BP Pulse Ox 97.7 F 60 18 199/95 100 04/11/17 01:18 04/11/17 01:18 04/11/17 01:18 04/11/17 01:18 04/11/17 01:18 Results - Labs 04/12/17 11:43 04/13/17 06:34
[2017-04-12 12:53] LABS: Hepatitis B Surface Ag Index 0.05
[2017-04-12 12:58] LABS: Hepatitis B Core IgM Index 0.01
[2017-04-12 13:10] LABS: Hepatitis C Virus IgG Ab Negative (Negative); Hepatitis C Virus IgG Index 0.03
[2017-04-12 13:24] LABS: Hemoglobin A1C 5.6 % (4.2-6.1)
--- NOTE | 2017-04-12 13:29 | P.CNPUL ---
History of Present Illness Consult date: 04/12/17 Reason for consult: other Chief complaint: Preop clearance History of present illness: Consult dated 04/12/2017 66-year-old male who presented with chest pain. He presented to the emergency room on April 11. He had 2 episodes of sharp left-sided chest pain. It occurred approximately 8 PM. He also notes some chest tightness. It was substernal. It did radiate to his left arm. He denied any shortness of breath. There is no nausea or vomiting. He did have one episode of lightheadedness since also some chest pain a few weeks back. There is a significant family history of coronary disease. Father at age 3055 from heart disease. The patient is currently being considered for bypass grafting. I'm asked to see the patient for preop clearance. Spirometry is been ordered but not been done as yet. The patient is a heavy smoker. He smoked for 37 years at a pack at least the day. The patient continues to smoke at this time. Review of Systems A 12 point review of system is positive for chest tightness chest pain. The rest of the 12 point review of system is unremarkable. Past Medical History Past Medical History: CVA/TIA, Hearing Disorder / Deafness (right ear.), Hyperlipidemia, Hypertension Additional Past Medical History / Comment(s): GERD, TIA 8 yrs ago History of Any Multi-Drug Resistant Organisms: None Reported Past Surgical History: Orthopedic Surgery Additional Past Surgical History / Comment(s): RIGHT LEG SURGERY, CYST REMOVED FROM LEFT LEG, nasal surgery for deviated septum. Past Anesthesia/Blood Transfusion Reactions: No Reported Reaction Past Psychological History: No Psychological Hx Reported Smoking Status: Current every day smoker (Smokes 1 pack to 1-1/2 packs per day. He reports he has smoked for about 35 years.) Past Alcohol Use History: Rare (1 drink every 6 months.) Past Drug Use History: None Reported - Past Family History Father Family Medical History: Myocardial Infarction ([place]) Additional Family Medical History / Comment(s): at 55 from [place] Brother(s) Family Medical History: No Reported History Additional Family Medical History / Comment(s): Patient has 2 brothers and is unsure of their past mental history. Sister(s) Additional Family Medical History / Comment(s): Patient had 7 sisters. 3 sisters have , one from ovarian cancer at age 44, 2 from breast cancer 1 at age 60 and the other at age 55. Mother Family Medical History: Coronary Artery Disease (CAD), Hypertension Additional Family Medical History / Comment(s): Mother at age 95 with history of hypertension, coronary artery disease status post CABG 3 vessel at age 75. Medications and Allergies Home Medications Medication Instructions Recorded Confirmed Type Aspirin [Adult Low Dose Aspirin EC] 81 mg PO DAILY 06/16/16 04/11/17 History Lisinopril [Zestril] 20 mg PO BID 06/16/16 04/11/17 History Omeprazole 20 mg PO DAILY 06/16/16 04/11/17 History Allergies Allergy/AdvReac Type Severity Reaction Status Date / Time No Known Allergies Allergy Verified 04/11/17 07:38 Physical Exam Osteopathic Statement: *. No significant issues noted on an osteopathic structural exam other than those noted in the History and Physical/Consult. Vitals: Vital Signs Temp Pulse Pulse Resp BP BP Pulse Ox 04/12/17 12:31 61 16 116/61 97 04/12/17 12:00 63 18 04/12/17 11:50 66 106/65 93 L 04/12/17 11:31 61 16 107/58 97 04/12/17 11:20 64 112/71 95 04/12/17 11:01 61 16 108/69 97 04/12/17 10:50 65 F L 140/72 95 04/12/17 10:35 63 135/65 95 04/12/17 10:20 65 137/77 95 04/12/17 10:05 98.1 F 62 18 153/77 97 04/12/17 09:46 98 F 62 16 162/89 95 04/12/17 08:04 98.1 F 59 L 16 179/94 162/89 95 04/12/17 07:49 98.1 F 59 L 18 179/94 162/89 95 04/12/17 07:42 57 L 16 04/12/17 04:00 50 L 18 04/12/17 03:46 98.5 F 53 L 18 148/83 96 04/12/17 00:00 48 L 16 04/11/17 23:31 98.4 F 57 L 16 140/72 94 L 04/11/17 20:00 16 04/11/17 19:27 99.4 F 56 L 16 140/81 96 04/11/17 16:00 98.2 F 61 15 173/91 95 Intake and Output 04/11/17 04/12/17 04/12/17 22:59 06:59 14:59 Intake Total 380 Output Total 1100 Balance -720 Intake: IV 50 Oral 330 Output: Urine 1100 Other: Voiding Method Toilet Toilet Urinal # Voids 1 2 1 No acute distress, oriented 3. HEENT examination is grossly unremarkable. Mucous membranes are moist. No oral lesions. Neck supple. Full range of motion. No adenopathy or thyromegaly. Neck veins are flat. Cardiovascular examination reveals regular rhythm rate. S1-S2 normal. Lungs reveal clear breath sounds. No wheezes or rhonchi. Abdomen soft bowel sounds are heard. Extremities are intact. No cyanosis clubbing or edema. Skin without rash. Neurologic examination is nonfocal. Results - Laboratory Findings CBC and BMP: 04/12/17 11:43 04/12/17 11:43 PT/INR, D-dimer PT 10.5 sec (9.0-12.0) 04/12/17 11:43 INR 1.0 (<1.2) 04/12/17 11:43 D-Dimer 0.50 mg/L FEU (<0.60) 04/11/17 01:38 Abnormal lab findings: Abnormal Labs 04/11/17 04/11/17 04/11/17 01:38 01:38 06:32 Plt Count 503 H Chloride Glucose 100 H Triglycerides 191 H Cholesterol 290 H LDL Cholesterol, Calc 227 H HDL Cholesterol 25 L 04/12/17 04/12/17 11:43 11:43 Plt Count 516 H Chloride 109 H Glucose Triglycerides Cholesterol LDL Cholesterol, Calc HDL Cholesterol - Diagnostic Findings Chest x-ray: image reviewed (X-rays labs and medications are reviewed.) Assessment and Plan (1) COPD (chronic obstructive pulmonary disease) Status: Acute (2) Chest pain Status: Acute (3) Coronary artery disease Status: Acute (4) Hyperlipidemia Status: Acute (5) Hypertension Status: Acute (6) Nicotine dependence Status: Acute (7) Chest pressure Status: Acute Plan: Plan dated 04/12/2017 The patient will have a spirometry. Additional recommendations were made in regards to his lung function. I told him that he should stop smoking. We credit counselor him about the importance of smoking cessation. We'll continue to follow. Prognosis is guarded. Time with Patient: Greater than 30
--- NOTE | 2017-04-12 19:25 | US ---
EXAMINATION TYPE: US carotid duplex BILAT DATE OF EXAM: 04/12/2017 COMPARISON: NONE CLINICAL HISTORY: Pre-op Cardiac surgery; TIA; smoker EXAM MEASUREMENTS: RIGHT: Peak Systolic Velocity (PSV) cm/sec ----- Right CCA: 54.3 ----- Right ICA: 68.0 ----- Right ECA: 162.9 mid ICA/CCA ratio: 1.3 RIGHT: End Diastole cm/sec ----- Right CCA: 12.2 ----- Right ICA: 20.6 ----- Right ECA: 0.0 LEFT: Peak Systolic Velocity (PSV) cm/sec ----- Left CCA: 86.7 ----- Left ICA: 70.2 ----- Left ECA: 133.3 proximally ICA/CCA ratio: 0.8 LEFT: End Diastole cm/sec ----- Left CCA: 14.7 ----- Left ICA: 17.2 ----- Left ECA: 9.1 VERTEBRALS (direction of flow): Right Vertebral: Antegrade Left Vertebral: Antegrade Mild intimal wall thickening is noted bilateral CCA. Mild to moderate intimal wall changes are noted at bilateral carotid bifurcation, but PSV is wnl in bilateral ICA. Elevated PSV is noted in bilateral ECA. IMPRESSION: 1. NEGATIVE FOR FLOW OBSTRUCTING DEANN or LICA STENOSIS. 2. Bilateral ECA peak systolic velocities noted.
[2017-04-12] MEDS ORDERED: ATORVASTATIN 80 MG TAB PO SCH (21:00)
[2017-04-13 07:37] VITALS: BP 150/79; RESP 18; TEMP 98.6
[2017-04-13 07:40] LABS: Anion Gap 9 mmol/L; Blood Urea Nitrogen 16 mg/dL (9-20); Calcium 10.3 mg/dL (8.4-10.2); Carbon Dioxide 22 mmol/L (22-30); Chloride 108 mmol/L (98-107); Glucose 90 mg/dL (74-99); Non-African American GFR(MDRD) >60 (>60 ml/min/1.73 sqM); Potassium 4.4 mmol/L (3.5-5.1); Sodium 139 mmol/L (137-145)
[2017-04-13] MEDS: METOPROLOL TARTRATE 25 MG TAB PO SCH (08:42)
[2017-04-13] MEDS: LISINOPRIL 20 MG TAB PO SCH (08:42)
[2017-04-13] MEDS: ASPIRIN 81 MG CHEW PO SCH (08:43)
[2017-04-13] MEDS: PANTOPRAZOLE 40 MG TABLET PO SCH (08:43)
[2017-04-13] MEDS: amLODIPine 5 MG TAB PO SCH (08:43)
--- NOTE | 2017-04-13 10:26 | P.PN ---
Subjective Progress note dated 04/13/2017 This is a 66-year-old male who presented to the emergency room with chest pain. He was admitted on April 11. The patient is apparently going to have bypass grafting. The date has not been sent. I was asked to see him because he smoked at least a pack a day for 37 years. He continues to smoke up until this hospitalization. I'm awaiting the spirometry that was ordered yesterday. The patient does have complaints of difficulty breathing coughing wheezing. His also smokes. He may be discharged home today. The maybe bring him back at a later date for surgery. Other than that doing relatively well. Objective - Vital Signs Vital signs: Vital Signs Temp 98.6 F 04/13/17 07:36 Pulse 61 04/13/17 08:00 Resp 18 04/13/17 08:00 BP 150/79 04/13/17 07:36 Pulse Ox 94 L 04/13/17 07:36 Intake & Output 04/12/17 04/13/17 04/13/17 18:59 06:59 18:59 Intake Total 620 1065 120 Output Total 1100 Balance -480 1065 120 Intake: IV 50 825 Sodium Chloride 0.9% 1, 825 000 ml @ 75 mls/hr IV . [id number] REN Rx#:[id number] Oral 570 240 120 Output: Urine 1100 Other: Voiding Method Toilet Toilet Toilet # Voids 1 1 - Exam No acute distress, oriented 3 HEENT examinations unremarkable. Mucous membranes are moist. Neck supple. Full range of motion. No adenopathy or thyromegaly Artery vascular examination reveals regular rhythm rate. S1-S2 normal. No S3- S4 or murmur. Lungs reveal mostly clear breath sounds. A few scattered rhonchi. No wheezes or crackles. Abdomen soft bowel sounds are heard. Extremities are intact. No cyanosis clubbing or edema. Skin without rash. Neurologic examination is nonfocal. - Labs CBC & Chem 7: 04/12/17 11:43 04/13/17 06:34 Labs: Abnormal Lab Results - Last 24 Hours (Table) 04/12/17 04/12/17 04/13/17 Range/Units 11:43 11:43 06:34 Plt Count 516 H (150-450) k/uL Chloride 109 H 108 H (98-107) mmol/L Calcium 10.3 H (8.4-10.2) mg/dL Microbiology - Last 24 Hours (Table) 04/12/17 12:30 Urine Culture - Preliminary Urine,Voided 04/12/17 13:15 Nasal Screen MRSA/MSSA (THERESE) - Preliminary Nasal Swab Assessment and Plan (1) COPD (chronic obstructive pulmonary disease) Status: Acute (2) Chest pain Status: Acute (3) Coronary artery disease Status: Acute (4) Hyperlipidemia Status: Acute (5) Hypertension Status: Acute (6) Nicotine dependence Status: Acute (7) Chest pressure Status: Acute Plan: Plan dated 04/12/2017 The patient will have a spirometry. Additional recommendations were made in regards to his lung function. I told him that he should stop smoking. We appliance counselor him about the importance of smoking cessation. We'll continue to follow. Prognosis is guarded. Plan dated 04/13/2017 The patient will probably be discharged home today. I counseled him about the importance of smoking cessation. I also appliance counselor his . I'm awaiting the results of the spirometry. I doubt that his lung disease is all that severe and it would be a contraindication for surgery. Nonetheless he does need to surgery and the patient may benefit from bronchodilators once a spirometry is evaluated. We'll continue to follow. Again smoking cessation counseling is provided. Time with Patient: Less than 30
--- NOTE | 2017-04-13 12:38 | P.PN ---
Subjective Principal diagnosis: Symptomatic triple-vessel coronary artery disease. History of hypertension, hyperlipidemia, TIA, current tobacco abuse, family history of coronary artery disease with his father at 55 years old from myocardial infarction. Patient is currently sitting up in chair in no acute distress eating breakfast. Family bedside. Preoperative teaching continued with patient and family. They do wish to seek a second opinion for surgical options. Objective - Vital Signs Vital signs: Vital Signs Temp 98.6 F 04/13/17 07:36 Pulse 61 04/13/17 07:36 Resp 18 04/13/17 07:36 BP 150/79 04/13/17 07:36 Pulse Ox 94 L 04/13/17 07:36 Intake & Output 04/12/17 04/13/17 04/13/17 18:59 06:59 18:59 Intake Total 620 1065 Output Total 1100 Balance -480 1065 Intake: IV 50 825 Sodium Chloride 0.9% 1, 825 000 ml @ 75 mls/hr IV . [id number] REN Rx#:[id number] Oral 570 240 Output: Urine 1100 Other: Voiding Method Toilet Toilet # Voids 1 1 - Constitutional General appearance: Present: cooperative, no acute distress - Respiratory Details: Lungs sounds clear bilaterally. Respirations even, nonlabored. Currently on room air with oxygen saturation 92%. Able to achieve 4000 mL on his incentive spirometer. - Cardiovascular Details: S1, S2 present. Regular but bradycardic rate and rhythm, sinus bradycardia on telemetry. Palpable pulses bilaterally. No edema present. - Gastrointestinal Gastrointestinal Comment(s): Abdomen soft, nontender, nondistended. Active bowel sounds 4 quadrants. Tolerating diet. - Genitourinary Genitourinary Comment(s): Continues to void clear, yellow urine. - Musculoskeletal Musculoskeletal: Present: gait normal, strength equal bilaterally - Psychiatric Psychiatric: Present: A&O x's 3, appropriate affect, intact judgment & insight - Allied health notes Allied health notes reviewed: nursing - Labs CBC & Chem 7: 04/12/17 11:43 04/13/17 06:34 Labs: Abnormal Lab Results - Last 24 Hours (Table) 04/12/17 04/12/17 04/13/17 Range/Units 11:43 11:43 06:34 Plt Count 516 H (150-450) k/uL Chloride 109 H 108 H (98-107) mmol/L Calcium 10.3 H (8.4-10.2) mg/dL Microbiology - Last 24 Hours (Table) 04/12/17 12:30 Urine Culture - Preliminary Urine,Voided 04/12/17 13:15 Nasal Screen MRSA/MSSA (THERESE) - Preliminary Nasal Swab - Imaging and Cardiology Chest x-ray: image reviewed Cardiac cath, echocardiogram, carotid Dopplers, PFT, vein mapping results reviewed. Assessment and Plan (1) Coronary artery disease Status: Acute (2) Family history of premature coronary artery disease Status: Acute (3) History of TIA (transient ischemic attack) Status: Acute (4) Hyperlipidemia Status: Acute (5) Hypertension Status: Acute (6) Nicotine dependence Status: Acute (7) Chest pressure Status: Acute Plan: 1. Recommend continuing aspirin, statin, beta candelario, Julio inhibitor. Patient may be intolerant to statin, he reports elevated liver enzymes in the past with 2 different statins. 2. Preoperative teaching reinforced. 3. Preoperative workup reviewed. Right greater saphenous vein unusable for conduit, left greater saphenous vein questionable. Bilateral upper extremity arterial studies ordered. 4. Encourage incentive spirometer use. 5. Encourage smoking cessation. 6. Patient, family requesting second surgical opinion. Dr. Black will see the patient today and answer any questions. Once arterial studies are completed and Dr. Black has seen the patient, he may be discharged home from our standpoint to seek second opinion. If the patient and family consented to surgery here they may contact us to schedule a surgery date. Time with Patient: Greater than 30
[2017-04-13 13:52] VITALS: PULSE 65
--- NOTE | 2017-04-13 14:09 | P.DS ---
Providers Date of admission: 04/11/17 15:09 Expected date of discharge: 04/13/17 Attending physician: Tommie Jane Consults: 04/11/17 03:33 Consult Physician Urgent Consulting Provider: Zoya Estrella Consult Reason/Comments: Chest pain Do you want consulting provider notified?: Yes, Notify in am 04/12/17 11:27 Consult Physician Routine Consulting Provider: Porter Lopez Consult Reason/Comments: pre op CABG Do you want consulting provider notified?: Yes Primary care physician: [facility] Course: This is a 66-year-old male patient of Dr. Melara's with a past medical history of TIA 8 years ago, hyperlipidemia, hypertension, and gastroesophageal reflux disease. Patient gives history that he had a jabbing pain in the left lateral anterior chest wall while he was sitting. It later felt a little bit heavy and he also complained of left elbow pain as well. Over the past month he has had little "pricks" of pain on and off as well as continued discomfort in the left elbow which is not similar to his arthritis. He states he's had a little shortness of breath. Patient came into [facility] emergency center for evaluation. Patient was placed in the observation unit and underwent stress test which was positive and he is scheduled tentatively for heart catheterization for tomorrow. Patient states that he believes he will undergo this treatment although he was hesitant. Troponins have been negative on 3 draws. Triglycerides 191, cholesterol 290, LDL 227, HDL 25. EKG was a sinus bradycardia with nonspecific ST abnormalities. Echocardiogram reveals EF 55-60%, mild tricuspid regurgitation, borderline concentric left ventricular hypertrophy, mild mitral regurgitation. 04/12: Patient has been seen by cardiothoracic surgery and evaluated by Dr. Lopez with plan for open heart surgery. At the time of discharge. Patient is requesting to have a second opinion done. We'll plan for patient to follow-up with [facility] and with Dr. Black if they wish to schedule a surgery date. Discharge diagnoses: 1. Chest pain, secondary to coronary artery disease status post heart catheterization and evaluated by cardiothoracic surgeon. 2. Hyperlipidemia. 3. Hypertension. 4. Gastroesophageal reflux disease. 5. Tobacco use and dependence. Discharge plan: He turned home Impression and plan of care have been directed as dictated by the signing physician. More Convery nurse practitioner acting as scribe for signing physician. Cc: Dr. Forest Melara Patient Condition at Discharge: Stable Plan - Discharge Summary New Discharge Prescriptions: New amLODIPine [Norvasc] 5 mg PO DAILY #30 tab Atorvastatin [Lipitor] 80 mg PO HS #30 tab Metoprolol Tartrate [Lopressor] 25 mg PO BID #60 tab Nitroglycerin Sl Tabs [Nitrostat] 0.4 mg SUBLINGUAL Q5M PRN #25 tab PRN Reason: Chest Pain Continue Omeprazole 20 mg PO DAILY Lisinopril [Zestril] 20 mg PO BID Aspirin [Adult Low Dose Aspirin EC] 81 mg PO DAILY Discharge Medication List Aspirin [Adult Low Dose Aspirin EC] 81 mg PO DAILY 06/16/16 [History] Lisinopril [Zestril] 20 mg PO BID 06/16/16 [History] Omeprazole 20 mg PO DAILY 06/16/16 [History] Atorvastatin [Lipitor] 80 mg PO HS #30 tab 04/13/17 [Rx] Metoprolol Tartrate [Lopressor] 25 mg PO BID #60 tab 04/13/17 [Rx] Nitroglycerin Sl Tabs [Nitrostat] 0.4 mg SUBLINGUAL Q5M PRN #25 tab 04/13/17 [Rx ] amLODIPine [Norvasc] 5 mg PO DAILY #30 tab 04/13/17 [Rx] Follow up Appointment(s)/Referral(s): [facility] [Provider Group] - 1 Week Kory Black MD [STAFF PHYSICIAN] - 1 Week Forest Melara DO [Primary Care Provider] - 3 Days Wendi Walsh MD [STAFF PHYSICIAN] - 2 Weeks Discharge Disposition: HOME SELF-CARE
--- NOTE | 2017-04-13 14:13 | P.PN ---
Subjective This is a 66-year-old male patient of Dr. Melara's with a past medical history of TIA 8 years ago, hyperlipidemia, hypertension, and gastroesophageal reflux disease. Patient gives history that he had a jabbing pain in the left lateral anterior chest wall while he was sitting. It later felt a little bit heavy and he also complained of left elbow pain as well. Over the past month he has had little "pricks" of pain on and off as well as continued discomfort in the left elbow which is not similar to his arthritis. He states he's had a little shortness of breath. Patient came into [facility] emergency center for evaluation. Patient was placed in the observation unit and underwent stress test which was positive and he is scheduled tentatively for heart catheterization for tomorrow. Patient states that he believes he will undergo this treatment although he was hesitant. Troponins have been negative on 3 draws. Triglycerides 191, cholesterol 290, LDL 227, HDL 25. EKG was a sinus bradycardia with nonspecific ST abnormalities. Echocardiogram reveals EF 55-60%, mild tricuspid regurgitation, borderline concentric left ventricular hypertrophy, mild mitral regurgitation. 04/12: Patient has been seen by cardiothoracic surgery and evaluated by Dr. Lopez with plan for open heart surgery. At the time of discharge. Patient is requesting to have a second opinion done. We'll plan for patient to follow-up with [facility] and with Dr. Black if they wish to schedule a surgery date. Objective - Vital Signs Vital signs: Vital Signs Temp 65 F L 04/12/17 10:50 Pulse 61 04/12/17 12:31 Resp 16 04/12/17 12:31 BP 116/61 04/12/17 12:31 Pulse Ox 97 04/12/17 12:31 Intake & Output 04/11/17 04/12/17 04/12/17 18:59 06:59 18:59 Intake Total 380 Output Total 1100 Balance -720 Intake: IV 50 Oral 330 Output: Urine 1100 Other: Voiding Method Toilet Toilet Urinal # Voids 1 2 1 - Exam Gen: This is a 66-year-old male. He is in bed and appears to be comfortable. No acute distress noted. HEENT: Head is atraumatic, normocephalic. Pupils equal, round. Sclerae is anicteric. NECK: Supple. No JVD. No lymphadenopathy. No thyromegaly. LUNGS: Clear to auscultation. No wheezes or rhonchi. No intercostal retractions. HEART: Regular rate and rhythm. No murmur. ABDOMEN: Soft. Bowel sounds are present. No masses. No tenderness. EXTREMITIES: No pedal edema. No calf tenderness. Dorsalis pedis +2 bilaterally. NEUROLOGICAL: Patient is awake, alert and oriented x3. Cranial nerves 2 through 12 are grossly intact. - Labs CBC & Chem 7: 04/12/17 11:43 04/13/17 06:34 Labs: Abnormal Lab Results - Last 24 Hours (Table) 04/12/17 04/12/17 Range/Units 11:43 11:43 Plt Count 516 H (150-450) k/uL Chloride 109 H (98-107) mmol/L Assessment and Plan Plan: 1. Chest pain, secondary to coronary artery disease. Cardiothoracic surgery consult and pulmonary medicine consult in preparation for CABG. 2. Hyperlipidemia. Patient has been started on Lipitor 80 mg daily. 3. Hypertension. Continue lisinopril 20 mg twice daily, patient started on metoprolol tartrate 25 mg twice daily. 4. Gastroesophageal reflux disease. Protonix. Patient will be admitted to the hospital for a minimum of 2 night stay. Discharge plan: return home Impression and plan of care have been directed as dictated by the signing physician. More Pacheco nurse practitioner acting as scribe for signing physician.
--- NOTE | 2017-04-20 11:27 | P.VSCSTY ---
Greater Saphenous Vein Mapping This is bilateral lower extremity greater saphenous vein mapping. Date of service: 04/11/2017 Vein quality and ultrasound appearance normal. Significant dilation and tortuosity on the right.. Vein size groin right 10.7 x 9.3 groin left 6.2 x 5.8 High thigh right 7.4 x 7.0 high thigh left 4.5 by 4.0 Mid thigh right 7.4 x 6.9 mid thigh left 3.7 x 3.5 Above-knee right 8.8 x 7.0 above- knee left 4.2 x 4.3 Below knee right 9.6 x 8.7 below-knee left 3.7 x 3.6 Mid calf right 8.6 x 4.9 mid calf left 3.8 x 3.2 Ankle right 5.1 x 4.0 ankle left 3.4 x 3.2. Impression usable greater saphenous vein on the left. Questionable vein right leg due to dilatation and tortuosity.
--- NOTE | 2017-04-20 11:33 | P.ARTDOP ---
Arterial Doppler Radial artery studies with segmental arterial Dopplers, digital plethysmography with radial artery compression, and duplex imaging Doppler studies showed no segmental or right to left pressure gradients. Digital plethysmography with radial artery compression shows dramatic pressure change with radial artery compression. On the right. On the left there is a significant gradient on the first digit but no gradient on the second digit. Imaging shows excellent size to the radial arteries ranging from 3.6 x 3.7 distally on the right to 4.2 x 3.5 proximally. The left ranges from 3.3 x 2.6 mm distally on the right to 3.4 x 3.3 mm proximally on the left. Impression: Right radial artery is not usable. Left radial artery may be usable. Clinical correlation recommended.
== END 2017-04-13 12:50 | disposition home or self-care (01) | DRG 287 ==
LOC: EC 01:15 → 3OBS 03:32 → OBSVTOIN 15:09
PROVIDERS: ADMIT Internal Medicine Geriatric Medicine; ATTEND Internal Medicine Geriatric Medicine
PROC: B2111ZZ Fluoroscopy of Multiple Coronary Arteries using Low Osmolar Contrast (ICD-10-PCS; 2017-04-12)
PROC: B2151ZZ Fluoroscopy of Left Heart using Low Osmolar Contrast (ICD-10-PCS; 2017-04-12)
PROC: 4A023N7 Measurement of Cardiac Sampling and Pressure, Left Heart, Percutaneous Approach (ICD-10-PCS; principal; 2017-04-12 08:40)
DX: I25.110 Atherosclerotic heart disease of native coronary artery with unstable angina pectoris (principal); I25.82 Chronic total occlusion of coronary artery; J44.9 Chronic obstructive pulmonary disease, unspecified; I10 Essential (primary) hypertension; E78.5 Hyperlipidemia, unspecified; K21.9 Gastro-esophageal reflux disease without esophagitis; F17.200 Nicotine dependence, unspecified, uncomplicated; H91.91 Unspecified hearing loss, right ear; R00.1 Bradycardia, unspecified; I08.1 Rheumatic disorders of both mitral and tricuspid valves; E66.9 Obesity, unspecified; Z86.69 Personal history of other diseases of the nervous system and sense organs; Z82.49 Family history of ischemic heart disease and other diseases of the circulatory system; Z79.899 Other long term (current) drug therapy; Z79.82 Long term (current) use of aspirin; Z80.3 Family history of malignant neoplasm of breast; Z86.73 Personal history of transient ischemic attack (TIA), and cerebral infarction without residual deficits; Z71.6 Tobacco abuse counseling
CPT/HCPCS: 36415; 71020; 80048; 80053; 80061; 80074; 81003; 82550; 82553; 83036; 83690; 83735; 83880; 84443; 84484; 85025; 85379; 85610; 85730; 86850; 86900; 86901; 87070; 87086; 93005; 93017; 93306; 93350; 93458; 93880; 93923; 93930; 93970; 94150; 96374; 99285

== ENCOUNTER → 2017-08-24 | Outpatient (CLI) | payer BC, MEDICARE ==
[2017-08-24 07:58] LABS: ALT 42 U/L (21-72); AST 25 U/L (17-59)
[2017-08-27 15:22] LABS: Large VLDL Particle Number,NMR 1.5 nmol/L (<=2.7)
== END | disposition home or self-care (01) ==
LOC: LABWHC1 07:13
PROVIDERS: ATTEND Internal Medicine Cardiovascular Disease
DX: I25.10 Atherosclerotic heart disease of native coronary artery without angina pectoris (principal)
CPT/HCPCS: 36415; 83704; 84450; 84460

== ENCOUNTER → 2017-11-01 | Outpatient (CLI) | payer BC, MEDICARE ==
[2017-11-01 08:14] LABS: ALT 42 U/L (21-72); AST 31 U/L (17-59); Creatine Kinase 98 U/L (55-170)
== END | disposition home or self-care (01) ==
LOC: LABWHC1 06:59
PROVIDERS: ATTEND Internal Medicine Cardiovascular Disease
DX: E78.2 Mixed hyperlipidemia (principal)
CPT/HCPCS: 36415; 82550; 83704; 84450; 84460

== ENCOUNTER → 2018-02-28 | Outpatient (CLI) | payer BC, MEDICARE | LOC: LABWHC1 10:10 | PROVIDERS: ATTEND Internal Medicine Cardiovascular Disease | DX: I25.10 Atherosclerotic heart disease of native coronary artery without angina pectoris (principal) | CPT/HCPCS: 36415; 83704 ==

== ENCOUNTER → 2018-03-31 | Outpatient (CLI) | payer BC, MEDICARE | END | disposition home or self-care (01) | LOC: LABWHC1 06:58 | PROVIDERS: ATTEND Nurse Practitioner Adult Health | DX: E78.2 Mixed hyperlipidemia (principal) | CPT/HCPCS: 36415; 83704 ==

== ENCOUNTER 2018-09-13 13:35 | Emergency (ER) | payer BC, MEDICARE ==
[2018-09-13] MEDS ORDERED: ACETAMINOPHEN TAB 500 MG TAB PO STA (14:16)
--- NOTE | 2018-09-13 14:16 | ED ---
General Adult HPI - General Chief complaint: Extremity Injury, Lower Stated complaint: Poss broken lt leg Time Seen by Provider: 09/13/18 14:03 Source: patient, RN notes reviewed Mode of arrival: ambulatory Limitations: no limitations - History of Present Illness Initial comments: Patient is a 67-year-old male who presents the emergency department with complaint of left ankle pain after he slipped and fell in the slush today about 2 and half hours ago. Denies hitting his head or loss of consciousness. Denies any other injury aside from the left ankle. Reports increased pain with weight bearing. Patient denies any recent fever, chills, shortness of breath, chest pain, back pain, abdominal pain, nausea or vomiting, numbness or tingling , headaches or visual changes, or any other complaints. - Related Data Home Medications Medication Instructions Recorded Confirmed Lisinopril [Zestril] 20 mg PO BID 06/16/16 08/01/17 Aspirin 325 mg PO DAILY 08/01/17 08/01/17 Pantoprazole [Protonix] 40 mg PO BID 08/01/17 08/01/17 Previous Rx's Medication Instructions Recorded Atorvastatin [Lipitor] 80 mg PO HS #30 tab 04/13/17 Metoprolol Tartrate [Lopressor] 25 mg PO BID #60 tab 04/13/17 Nitroglycerin Sl Tabs [Nitrostat] 0.4 mg SUBLINGUAL Q5M PRN #25 tab 04/13/17 amLODIPine [Norvasc] 5 mg PO DAILY #30 tab 04/13/17 Pantoprazole [Protonix] 40 mg PO DAILY #14 tablet. 08/01/17 Hydrocodone/Acetaminophen [[place] 1 tablet PO Q6HR PRN #10 tab 09/13/18 5-325] Allergies Allergy/AdvReac Type Severity Reaction Status Date / Time No Known Allergies Allergy Verified 09/13/18 13:42 Review of Systems ROS Statement: Those systems with pertinent positive or pertinent negative responses have been documented in the HPI. ROS Other: All systems not noted in ROS Statement are negative. Past Medical History Past Medical History: CVA/TIA, Hearing Disorder / Deafness, Hyperlipidemia, Hypertension Additional Past Medical History / Comment(s): GERD, TIA 8 yrs ago History of Any Multi-Drug Resistant Organisms: None Reported Past Surgical History: Orthopedic Surgery Additional Past Surgical History / Comment(s): RIGHT LEG SURGERY, CYST REMOVED FROM LEFT LEG, nasal surgery for deviated septum. Past Anesthesia/Blood Transfusion Reactions: No Reported Reaction Past Psychological History: No Psychological Hx Reported Smoking Status: Current every day smoker Past Alcohol Use History: Rare Past Drug Use History: None Reported - Past Family History Father Family Medical History: Myocardial Infarction ([place]) Additional Family Medical History / Comment(s): at 55 from [place] Brother(s) Family Medical History: No Reported History Additional Family Medical History / Comment(s): Patient has 2 brothers and is unsure of their past mental history. Sister(s) Additional Family Medical History / Comment(s): Patient had 7 sisters. 3 sisters have , one from ovarian cancer at age 44, 2 from breast cancer 1 at age 60 and the other at age 55. Mother Family Medical History: Coronary Artery Disease (CAD), Hypertension Additional Family Medical History / Comment(s): Mother at age 95 with history of hypertension, coronary artery disease status post CABG 3 vessel at age 75. General Exam Limitations: no limitations General appearance: alert, in no apparent distress Head exam: Present: atraumatic, normocephalic Eye exam: Present: normal appearance Respiratory exam: Present: normal lung sounds bilaterally. Absent: wheezes, rales, rhonchi Cardiovascular Exam: Present: regular rate, normal rhythm Extremities exam: Present: normal capillary refill, joint swelling (Left ankle.) , other (Sensation intact bilateral lower extremities.) Neurological exam: Present: alert, oriented X3 Skin exam: Present: warm, dry Course Vital Signs 09/13/18 09/13/18 13:42 17:20 Temperature 97.9 F 98.2 F Pulse Rate 66 65 Respiratory 18 16 Rate Blood Pressure 162/87 165/82 O2 Sat by Pulse 97 98 Oximetry Procedures - Orthopedic Splinting/Casting Injury #1 Side: left Lower Extremity Injury Location: ankle Lower Extremity Immobilizer: posterior splint, stirrup splint Medical Decision Making - Medical Decision Making Given Tylenol for pain. X-ray of the left ankle reveals spiral fracture distal fibula with mild displacement of 3 mm. Medial malleolar fracture. Disruption of the ankle mortise. Posterior malleolus fracture. Soft tissue swelling. Patient later stated that his left knee had started hurting as well. X-ray of the left knee reveals no acute fracture or dislocation. Given morphine for pain. Splints applied. Patient scheduled an appointment with orthopedics. Will prescribe [place] for more severe pain as needed. Patient may take over-the- counter Tylenol for less severe pain as needed. I have reviewed the patient's relevant medical records, medical history, and any change in medical condition. Opioid Start Talking form was completed with the patient. The patient verbalized understanding. The patient has been instructed to follow-up with his PCP for monitoring of treatment. Case discussed in detail with attending physician Dr. Fernández. Disposition Clinical Impression: Ankle fracture Disposition: HOME SELF-CARE Condition: Good Instructions (If sedation given, give patient instructions): Ankle Fracture (ED ) Additional Instructions: Follow-up with your PCP in 1 to 2 days for monitoring of treatment. Please keep your appointment that you scheduled with the orthopedic doctor tomorrow. Do not drive today or while taking [place]. Return to the emergency department if your symptoms worsen or other concerns. Prescriptions: Hydrocodone/Acetaminophen [[place] 5-325] 1 tablet PO Q6HR PRN #10 tab PRN Reason: Pain Is patient prescribed a controlled substance at d/c from ED?: Yes When asked, does pt state using other controlled substances?: No If prescribed controlled substance>3 days was MAPS reviewed?: Prescribed <3 Days If opioid is for acute pain is fill amount 7 days or less?: Yes If Rx opioid, was Start Talking consent form obtained?: Yes Referrals: Forest Palacios MD [Primary Care Provider] - 1-2 days Time of Disposition: 17:16
--- NOTE | 2018-09-13 15:02 | XR ---
EXAMINATION TYPE: XR ankle complete LT DATE OF EXAM: 09/13/2018 COMPARISON: NONE HISTORY: Pain TECHNIQUE: 3 views of the left ankle are submitted for evaluation. FINDINGS: Spiral fracture distal fibula with mild displacement noted of 3 mm. Medial malleolar fractu re noted. Disruption of the ankle mortise identified. Posterior malleolar fracture noted as well. Sof t tissue swelling identified. IMPRESSION: 1. Ankle fractures as discussed. Disruption ankle mortise.
--- NOTE | 2018-09-13 15:05 | XR ---
EXAMINATION TYPE: XR knee complete LT DATE OF EXAM: 09/13/2018 CLINICAL HISTORY: pain TECHNIQUE: Three views of the left knee are obtained. COMPARISON: None. FINDINGS: There is no acute fracture/dislocation. The tri-compartment joint spaces appear within no rmal limits. The overlying soft tissue appears unremarkable. IMPRESSION: There is no acute fracture or dislocation ICD 10 NO FRACTURE, INITIAL EVALUATION
[2018-09-13] MEDS ORDERED: MORPHINE SULFATE 4 MG/ML SYRINGE IM STA (15:46)
[2018-09-13 17:35] VITALS: BP 165/82; PULSE 65; RESP 16; TEMP 98.2
== END 2018-09-13 17:20 | disposition home or self-care (01) ==
LOC: EC 13:35
DX: S82.892A Other fracture of left lower leg, initial encounter for closed fracture (principal); I10 Essential (primary) hypertension; K21.9 Gastro-esophageal reflux disease without esophagitis; F17.200 Nicotine dependence, unspecified, uncomplicated; Z86.73 Personal history of transient ischemic attack (TIA), and cerebral infarction without residual deficits; Z98.890 Other specified postprocedural states; Z79.82 Long term (current) use of aspirin; Z79.899 Other long term (current) drug therapy; W01.0XXA Fall on same level from slipping, tripping and stumbling without subsequent striking against object, initial encounter; Y92.89 Other specified places as the place of occurrence of the external cause
CPT/HCPCS: 73562; 73610; 99283; 29515; 96372; J2270

== ENCOUNTER → 2018-09-21 | Outpatient (CLI) | payer BC ==
--- NOTE | 2018-09-21 09:15 | CT ---
EXAMINATION TYPE: CT ankle LT wo con DATE OF EXAM: 09/21/2018 COMPARISON: 09/13/2018 radiographs HISTORY: 67-year-old male for evaluation of ankle fx TECHNIQUE: Contiguous axial scanning of the left ankle without IV contrast. Coronal and sagittal mary nstructions performed. 3-D reconstructions generated on a dedicated independent workstation. CT DLP: 318 mGycm Automated exposure control for dose reduction was used. FINDINGS: Plaster cast is present. There is a long oblique fracture of the distal fibular shaft with mild posterior displacement of the distal fracture fragment by 7 mm. There is an avulsed fracture of the anterior inferior tibial tubercle with separation of 8 mm. There is a vertically oriented fracture of the posterior malleolus with the fracture fragment measuri ng 3.0 cm craniocaudal by 2.5 cm wide by 1.2 cm AP. There is resultant 2 mm of step-off along the fib ular fossa and minimal 2 mm of articular surface step-off at the posterior aspect of the tibiotalar j oint. A tiny comminuted cortical bone fragment is interposed along the superior aspect of the fractur e, axial image 49. There is a mildly displaced horizontal fracture of the medial malleolus with 5 mm of lateral displace ment. Secondary incongruence of the tibiotalar joint. There is a 6 mm bone fragment/loose body in the anterior tibiotalar joint. Subtalar joint is aligned. Smooth delineation of the Achilles tendon. Small type I accessory navicular. Some blood blisters are suggested along the lateral aspect of the ankle. IMPRESSION: 1. UNSTABLE TRIMALLEOLAR ANKLE FRACTURES DESCRIBED ABOVE. 2. THERE IS A SYNDESMOTIC DISRUPTION EQUIVALENT GIVEN AVULSION FRACTURE OF THE ANTERIOR-INFERIOR TIBI AL TUBERCLE. 3. 6 MM LOOSE BODY/BONE FRAGMENT IN THE ANTERIOR TIBIOTALAR JOINT.
== END | disposition home or self-care (01) ==
LOC: RADCTMAIN 07:40
PROVIDERS: ATTEND Orthopaedic Surgery
DX: S82.832A Other fracture of upper and lower end of left fibula, initial encounter for closed fracture (principal); S82.151A Displaced fracture of right tibial tuberosity, initial encounter for closed fracture; S82.852A Displaced trimalleolar fracture of left lower leg, initial encounter for closed fracture; F17.200 Nicotine dependence, unspecified, uncomplicated

== ENCOUNTER 2018-10-06 12:55 | Day surgery (SDC) | payer BC ==
[2018-10-05 10:21] VITALS: BMI 30.5
[~2018-10-06 12:55] MED LIST: DEXAMETHASONE SOD PHOSPHATE 10 MG/ML 1 ML VIAL IV ONE; HYDROmorphone 0.5 MG/0.5 ML SYRINGE IVP PRN; LACTATED RINGERS 1,000 ML IV SCH; MIDAZOLAM (PF) 2 MG/2 ML VIAL IV PRN; ONDANSETRON 4 MG/2 ML VIAL IVP ONE; SCOPOLAMINE 1.5MG/72HR PATCH TRANSDERM ONE; ceFAZolin IN SWFI 2 GM/20 ML SYRINGE IVP ONE
[2018-10-06] MEDS ORDERED: MIDAZOLAM 2 MG/2 ML VIAL IVP ONE (14:05)
[2018-10-06] MEDS ORDERED: MIDAZOLAM 2 MG/2 ML VIAL ONE (15:24)
[2018-10-06] MEDS ORDERED: fentaNYL (PF) 50 MCG/ML 2 ML AMP ONE (15:24)
[2018-10-06] MEDS ORDERED: KETAMINE 10 MG/ML 20 ML VIAL ONE (15:24)
[2018-10-06] MEDS ORDERED: PROPOFOL 10 MG/ML 20 ML VIAL IV ONE (15:24)
[2018-10-06] MEDS ORDERED: HYDROmorphone (PF) 1 MG/ML ONE (15:24)
[2018-10-06] MEDS ORDERED: LIDOCAINE 1% INJ 10MG/ML (20 ML MDV) ONE (15:24)
[2018-10-06 17:45] VITALS: RESP 18; TEMP 97.4
--- NOTE | 2018-10-06 17:52 | P.OP ---
Date of Procedure: 10/06/18 Preoperative Diagnosis: 1. Closed left trimalleolar ankle fracture 2. COPD 3. Coronary artery disease Postoperative Diagnosis: Same Procedure(s) Performed: 1. Open reduction and internal fixation of left medial and lateral malleolus fracture 2. Nonoperative management of left posterior malleolus fracture 3. Manual application of joint stress for radiography by physician, left ankle 4. Application of short leg splint by physician, left ankle Anesthesia: MAC, regional Surgeon: Jorge Alberto Briceno Director Data #1: Raymond Corona Estimated Blood Loss (ml): 15 IV fluids (ml): 1,200 Pathology: none sent Condition: stable Disposition: PACU Indications for Procedure: The patient is a very pleasant 67-year-old male with multiple medical problems including COPD and coronary artery disease who sustained a fall in August 2018 resulting in an unstable left trimalleolar ankle fracture. He was found to have significant swelling and hemorrhagic fracture blisters. He underwent debridement of the blisters and application of a Silvadene dressing. He was placed in a well-padded bulky Fernández splint and his soft tissue was monitored to evaluate for resolution of swelling. Once the fracture blisters have epithelialized and his swelling resolved we elected to go forward with surgery. My recommendation was for an open reduction internal fixation of his unstable fractures. We discussed potential risks and complications of surgery including but not limited to risk of anesthesia, superficial infection, deep infection, delayed wound healing, wound necrosis, deep wound necrosis, fracture nonunion, fracture malunion, reduction of the ankle, postoperative displacement of the ankle mortise, symptomatically hardware, failure of the hardware, chronic pain, chronic swelling, DVT, PE, other medical complications, and possibly loss of life or limb. The patient understands due to his medical history is at a higher risk having a complication. Description of Procedure: The patient was identified and prepped with holding and the correct left leg was marked with my initials. I reviewed the consent form with the patient and all of his questions were answered. He is given a popliteal and saphenous nerve block by anesthesia. He was brought to the operating room and positioned on an or table. A general anesthetic and preoperative antibiotics were given. A tourniquet was applied to the proximal aspect of the left thigh. The right leg was secured to the table with foam and tape. A bump was placed under the left buttock internally rotating the leg to neutral. A ramp was placed in the left leg elevate facilitate imaging. The left leg was then prepped and draped in the standard sterile fashion. Prior to starting surgery timeout was performed identifying the correct patient, operative extremity, and procedure. The patient's leg was then elevated, exsanguinated with an Esmarch bandage, and the tourniquet was inflated to 250 mmHg. I began by making a longitudinal incision over the lateral aspect the distal fibula. Skin incision was made with a scalpel. Dissection was carried down carefully to the subcutaneous tissue with tenotomy scissors. A branch of superficial peroneal nerve was identified proximally in the wound and carefully retracted. The fracture site was identified. Due to the length of time from his injury there was already callus forming. The callus was taken down with a pituitary Anish and scalpel. Once the fracture edges were carefully debrided the fracture was reduced and held with [id number] reduction clamps. A nonlocking 2.7 mm lag screw was placed across the fracture distally in a nonlocking 2.0 mm lag screw was placed across the fracture proximally. I then contoured a precontoured locking distal fibula plate over the distal fibula. Nonlocking screws were placed proximally to bring the plate down to bone. A nonlocking screws placed distal to the fracture bringing the plate down to bone. I then placed locking screws in the distal aspect of the plate. The fibula fracture appeared to be out to length. Attention was then turned medially. A longitudinal incision was made over the medial malleolus. There is significant healing at artery occurred at the fracture site which was taken down. This made reducing and judging the reduction difficult. A 2.0 mm drill bit was used to create a unicortical perforation just proximal to the fracture. A kfzfz-pe-ffiuk reduction clamp was placed with 1 rosamaria in the previously made drill hole in the second rosamaria at the tip of the medial malleolus. The reduction was verified with fluoroscopy. I then placed 2 nonlocking 3.5 mm screws across the medial malleolus. Final fluoroscopic images were taken including a mortise and manual external rotation stress x-ray. The fibula fracture appeared to be out to length and the medial malleolus of cleared reduced within the ankle mortise. On the lateral x-ray the talus appeared reduced under the tibial plafond. A manual external rotation stress x-ray was performed which showed no widening of the medial clear space or incisura. The wounds were then copiously irrigated and closed in layers. Sterile dressings were applied. The drapes were taken down and a well-padded bulky Fernández splint was placed with the ankle in neutral. The patient was then awoken from his anesthetic, transferred to a gurney, and brought to PACU without the procedure well. Raymond Corona PAC was required as a skilled medical technician assistant for patient positioning, exposure, reduction of fracture, placement of hardware, closure of wounds and application of splint.
[2018-10-06] MEDS ORDERED: LACTATED RINGERS 1,000 ML IV ONE (18:03)
[2018-10-06] MEDS ORDERED: HYDROcodone/APAP 10-325MG 1 EACH TAB PO ONE (18:54)
[2018-10-06 19:46] VITALS: BP 133/75; PULSE 76
--- NOTE | 2018-10-07 11:18 | FL ---
Fluoroscopy History: Fracture 30 sec fluoro time. [address] Briceno.
== END 2018-10-06 19:49 | disposition home or self-care (01) ==
LOC: OR 12:55
PROVIDERS: ATTEND Orthopaedic Surgery
DX: S82.852A Displaced trimalleolar fracture of left lower leg, initial encounter for closed fracture (principal); W00.0XXA Fall on same level due to ice and snow, initial encounter; M25.772 Osteophyte, left ankle; I25.10 Atherosclerotic heart disease of native coronary artery without angina pectoris; J44.9 Chronic obstructive pulmonary disease, unspecified; I10 Essential (primary) hypertension; E78.2 Mixed hyperlipidemia; Z95.1 Presence of aortocoronary bypass graft; Z86.73 Personal history of transient ischemic attack (TIA), and cerebral infarction without residual deficits; F17.210 Nicotine dependence, cigarettes, uncomplicated; Z82.49 Family history of ischemic heart disease and other diseases of the circulatory system; Z79.82 Long term (current) use of aspirin; Z79.891 Long term (current) use of opiate analgesic; Z79.899 Other long term (current) drug therapy
CPT/HCPCS: 27814; 73600; J2250; J1100; J2405; J1170; J0690; 64447

== ENCOUNTER → 2021-07-15 | Outpatient (CLI) | payer BC ==
--- NOTE | 2021-07-16 10:04 | ECHOF ---
Referral Reason:Z01.810 pre-op [id number] Shortness of breath MEASUREMENTS -------- HEIGHT: 182.9 cm WEIGHT: 108.9 kg BP: RVIDd: 3.5 cm (< 3.3) IVSd: 1.3 cm (0.6 - 1.1) LVIDd: 5.0 cm (3.9 - 5.3) LVPWd: 1.2 cm (0.6 - 1.1) IVSs: 1.4 cm LVIDs: 4.4 cm LVPWs: 1.3 cm LAESV Index (A-L): 29.65 ml/m Ao Diam: 3.3 cm (2.0 - 3.7) AV Cusp: 1.9 cm (1.5 - 2.6) LA Diam: 3.9 cm (2.7 - 3.8) MV EXCURSION: 17.310 mm (> 18.000) MV EF SLOPE: 103 mm/s (70 - 150) EPSS: 0.4 cm RAP: 5.00 mmHg RVSP: 34.78 mmHg FINDINGS -------- Sinus rhythm. This was a technically adequate study. The left ventricular size is normal. There is mild concentric left ventricular hypertrophy. Overa ll left ventricular systolic function is low-normal with, an EF between 50 - 55 %. Atypical septal wall motion The right ventricle is mild to moderately enlarged. Atypical septal motion. LA is midly dilated 29-33ml/m2. The right atrial size is normal. There is mild aortic valve sclerosis. There is no evidence of aortic regurgitation. Mild mitral annular calcification present. Mild mitral regurgitation is present. Mild tricuspid regurgitation present. There is mild pulmonary hypertension. The right ventricular systolic pressure, as measured by Doppler, is 34.78mmHg. The pulmonic valve was not well visualized. The aortic root size is normal. Echo free space represents a pericardial fat pad. CONCLUSIONS -------- 1. The left ventricular size is normal. 2. There is mild concentric left ventricular hypertrophy. 3. Atypical septal wall motion 4. The right ventricle is mild to moderately enlarged. 5. LA is midly dilated 29-33ml/m2. 6. The right atrial size is normal. 7. There is mild aortic valve sclerosis. 8. Mild mitral regurgitation is present. 9. Mild tricuspid regurgitation present. 10. There is mild pulmonary hypertension. 11. The right ventricular systolic pressure, as measured by Doppler, is 34.78mmHg. 12. The pulmonic valve was not well visualized. 13. The aortic root size is normal. 14. Echo free space represents a pericardial fat pad. TRAVELING REPRESENTATIVE: Rachna Durán RDCS
== END | disposition home or self-care (01) ==
LOC: RADECHMAIN 14:31
PROVIDERS: ATTEND Internal Medicine
DX: Z01.810 Encounter for preprocedural cardiovascular examination (principal); I08.3 Combined rheumatic disorders of mitral, aortic and tricuspid valves; I27.20 Pulmonary hypertension, unspecified
CPT/HCPCS: 93306

== ENCOUNTER 2021-11-08 21:33 | Emergency (ER) | payer BC ==
[2021-11-08 22:06] VITALS: TEMP 99
[2021-11-08] MEDS ORDERED: METOCLOPRAMIDE 5 MG/ML 2 ML VIAL IVP STA (22:13)
[2021-11-08] MEDS ORDERED: PANTOPRAZOLE 40 MG/10 ML VIAL IVP STA (22:13)
[2021-11-08] MEDS ORDERED: KETOROLAC 15 MG/ML 1 ML VIAL IVP STA (22:13)
[2021-11-08] MEDS ORDERED: SODIUM CHLORIDE 0.9% 1,000 ML IV STA ×2 (22:13)
--- NOTE | 2021-11-08 22:15 | ED ---
Recheck HPI - General Chief Complaint: Abdominal Pain Stated Complaint: Constipation Time Seen by Provider: 11/08/21 22:13 Source: patient, RN notes reviewed, old records reviewed Mode of arrival: ambulatory Limitations: no limitations - History of Present Illness Initial Comments: This is a 70-year-old male DF for evaluation. Patient presents today for evaluation of constipation surgery. Patient has recent abdominal surgery on Tuesday. Has not had a bowel movement since last Tuesday. Patient presented to other outside facility recently and has not had a bowel movement since. No travel show sick contacts no fevers. Patient has no other complaints MD Complaint: other (Patient concern for inability to have a bowel movement) -: days(s) Returns Today for: persistent/worsening pain related to initial visit Symptoms Since Prior Visit: worsening pain Context: other (Recent surgery) Associated Symptoms: none Treatments Prior to Arrival: other medications, Given Pain Meds on - Related Data Home Medications Medication Instructions Recorded Confirmed lisinopriL [Zestril] 20 mg PO BID 06/16/16 10/06/18 Aspirin 325 mg PO DAILY 08/01/17 10/06/18 Ezetimibe [Zetia] 10 mg PO DAILY 10/05/18 10/06/18 HYDROcodone/APAP 10-325MG [[place] 1 tab PO Q6HR PRN 10/05/18 10/06/18 10-325] Rosuvastatin Calcium [Crestor] 40 mg PO HS 10/05/18 10/06/18 Previous Rx's Medication Instructions Recorded Metoprolol Tartrate [Lopressor] 25 mg PO BID #60 tab 04/13/17 Nitroglycerin Sl Tabs [Nitrostat] 0.4 mg SUBLINGUAL Q5M PRN #25 tab 04/13/17 amLODIPine [Norvasc] 5 mg PO DAILY #30 tab 04/13/17 Pantoprazole [Protonix] 40 mg PO DAILY #14 tablet. 08/01/17 Aspirin 325 mg PO DAILY #14 tab 10/06/18 Docusate [Colace] 100 mg PO BID #60 capsule 10/06/18 HYDROcodone/APAP 10-325MG [[place] 1 tab PO Q6HR PRN 7 Days #40 tab 10/06/18 10-325] Allergies Allergy/AdvReac Type Severity Reaction Status Date / Time No Known Allergies Allergy Verified 11/08/21 22:06 Review of Systems ROS Statement: Those systems with pertinent positive or pertinent negative responses have been documented in the HPI. ROS Other: All systems not noted in ROS Statement are negative. Past Medical History Past Medical History: CVA/TIA, GERD/Reflux, Hearing Disorder / Deafness, H yperlipidemia, Hypertension, Musculoskeletal Disorder Additional Past Medical History / Comment(s): TIA 8 yrs ago-no residual effects, fell & fx. left ankle 09-13-18, in half cast History of Any Multi-Drug Resistant Organisms: None Reported Past Surgical History: Coronary Bypass/CABG, Hernia Repair, Orthopedic Surgery Additional Past Surgical History / Comment(s): CYST REMOVED FROM LEFT LEG, repair deviated septum, ORIF right fib., quad bypass 2016 @[facility], hernia repair 11/10 Past Anesthesia/Blood Transfusion Reactions: No Reported Reaction Past Psychological History: No Psychological Hx Reported Smoking Status: Never smoker Past Alcohol Use History: Rare Past Drug Use History: None Reported - Past Family History Father Family Medical History: Myocardial Infarction ([place]) Additional Family Medical History / Comment(s): at 55 from [place] Brother(s) Family Medical History: No Reported History Additional Family Medical History / Comment(s): Patient has 2 brothers and is unsure of their past mental history. Sister(s) Additional Family Medical History / Comment(s): Patient had 7 sisters. 3 siste rs have , one from ovarian cancer at age 44, 2 from breast cancer 1 at age 60 and the other at age 55. Mother Family Medical History: No Reported History General Exam General appearance: alert, in no apparent distress Head exam: Present: atraumatic, normocephalic, normal inspection Eye exam: Present: normal appearance, PERRL, EOMI. Absent: scleral icterus, conjunctival injection, periorbital swelling ENT exam: Present: normal exam, mucous membranes moist Neck exam: Present: normal inspection. Absent: tenderness, meningismus, lymphadenopathy Respiratory exam: Present: normal lung sounds bilaterally. Absent: respiratory distress, wheezes, rales, rhonchi, stridor Cardiovascular Exam: Present: regular rate, normal rhythm, normal heart sounds. Absent: systolic murmur, diastolic murmur, rubs, gallop, clicks GI/Abdominal exam: Present: soft, normal bowel sounds. Absent: distended, tenderness, guarding, rebound, rigid Extremities exam: Present: normal inspection, full ROM, normal capillary refill. Absent: tenderness, pedal edema, joint swelling, calf tenderness Back exam: Present: normal inspection Neurological exam: Present: alert, oriented X3, CN II-XII intact Psychiatric exam: Present: normal affect, normal mood Skin exam: Present: warm, dry, intact, normal color. Absent: rash Course Vital Signs 11/08/21 11/09/21 22:01 00:08 Temperature 99 F Pulse Rate 78 67 Respiratory 19 18 Rate Blood Pressure 124/73 123/69 O2 Sat by Pulse 96 94 L Oximetry - Reevaluation(s) Reevaluation #1: 11/09/21 00:12 Medical record is reviewed Reevaluation #2: 11/09/21 00:12 Patient symptoms are improved here in the ER Reevaluation #3: 11/09/21 00:12 Patient having adequate bowel movements here in the ER Reevaluation #4: 11/09/21 00:12 Patient informed results questions answered Medical Decision Making - Medical Decision Making 70 male to the emergency department for evaluation postop pain and constipation. Patient having adequate bowel movement currently. Patient can be discharged - Lab Data Result diagrams: 11/08/21 22:30 11/08/21 22:30 Lab Results 11/08/21 11/08/21 11/08/21 Range/Units 22:30 22:30 22:30 WBC 11.8 H (3.8-10.6) k/uL RBC 5.19 (4.30-5.90) m/uL Hgb 16.0 (13.0-17.5) gm/dL Hct 48.3 (39.0-53.0) % MCV 93.0 (80.0-100.0) fL MCH 30.8 (25.0-35.0) pg MCHC 33.1 (31.0-37.0) g/dL RDW 12.7 (11.5-15.5) % Plt Count 553 H (150-450) k/uL MPV 7.0 Neutrophils % 61 % Lymphocytes % 27 % Monocytes % 9 % Eosinophils % 1 % Basophils % 1 % Neutrophils # 7.2 (1.3-7.7) k/uL Lymphocytes # 3.1 (1.0-4.8) k/uL Monocytes # 1.1 H (0-1.0) k/uL Eosinophils # 0.1 (0-0.7) k/uL Basophils # 0.2 (0-0.2) k/uL Sodium 139 (137-145) mmol/L Potassium 4.8 (3.5-5.1) mmol/L Chloride 104 (98-107) mmol/L Carbon Dioxide 26 (22-30) mmol/L Anion Gap 9 mmol/L BUN 23 H (9-20) mg/dL Creatinine 1.11 (0.66-1.25) mg/dL Est GFR (CKD-EPI)AfAm 78 (>60 ml/min/1.73 sqM) Est GFR (CKD-EPI)NonAf 68 (>60 ml/min/1.73 sqM) Glucose 110 H (74-99) mg/dL Plasma Lactic Acid Ty 0.9 (0.7-2.0) mmol/L Calcium 11.0 H (8.4-10.2) mg/dL Phosphorus 3.4 (2.5-4.5) mg/dL Magnesium 3.1 H (1.6-2.3) mg/dL Total Bilirubin 0.7 (0.2-1.3) mg/dL AST 46 (17-59) U/L ALT 47 (4-49) U/L Alkaline Phosphatase 85 (38-126) U/L Total Protein 7.7 (6.3-8.2) g/dL Albumin 4.6 (3.5-5.0) g/dL Amylase 78 (30-110) U/L Lipase 120 (23-300) U/L - Radiology Data Radiology results: report reviewed (CT abdomen and pelvis shows constipation ileus), image reviewed Disposition Clinical Impression: Constipation, Abdominal pain Disposition: HOME SELF-CARE Condition: Good Instructions (If sedation given, give patient instructions): Abdominal Pain (ED) Is patient prescribed a controlled substance at d/c from ED?: No Referrals: Pat Mason MD [Primary Care Provider] - 1-2 days
[2021-11-08 22:44] LABS: Basophils # (A) 0.2 k/uL (0-0.2); Basophils % (A) 1 %; Eosinophils # (A) 0.1 k/uL (0-0.7); Eosinophils % (A) 1 %; HCT 48.3 % (39.0-53.0); Lymphocytes # (A) 3.1 k/uL (1.0-4.8); Lymphocytes % (A) 27 %; MCH 30.8 pg (25.0-35.0); MCHC 33.1 g/dL (31.0-37.0); Monocytes # (A) 1.1 k/uL (0-1.0); Monocytes % (A) 9 %; Neutrophils # (A) 7.2 k/uL (1.3-7.7); Neutrophils % (A) 61 %; Platelet Count 553 k/uL (150-450); RBC 5.19 m/uL (4.30-5.90); RDW 12.7 % (11.5-15.5); WBC 11.8 k/uL (3.8-10.6)
[2021-11-08 22:56] LABS: Albumin 4.6 g/dL (3.5-5.0); Magnesium 3.1 mg/dL (1.6-2.3); Phosphorus 3.4 mg/dL (2.5-4.5); Potassium 4.8 mmol/L (3.5-5.1); Total Bilirubin 0.7 mg/dL (0.2-1.3); Total Protein 7.7 g/dL (6.3-8.2)
--- NOTE | 2021-11-09 00:04 | CT ---
EXAMINATION TYPE: CT abdomen pelvis w con DATE OF EXAM: 11/08/2021 COMPARISON: None HISTORY: Abd Pain CT DLP: mGycm Automated exposure control for dose reduction was used. CONTRAST: Performed with IV Contrast, patient injected with 100 mL of Isovue 300. Images obtained from the diaphragm to the floor of the pelvis with IV contrast. Lung bases are clear of infiltrate. There is mild subsegmental atelectasis right lung base. Heart siz e is normal. There is no pericardial effusion. Liver spleen stomach appear intact. The bile ducts are nondilated. There is no pancreatic mass. Gallbladder appears intact. There is no discrete liver mass . There are punctate calcifications in the inferior liver that could relate to old granulomatous dise ase. There is no adrenal mass. Kidneys show satisfactory contrast opacification. There is no hydronephrosi s. Delayed images show no evidence of obstruction. There is very little contrast in the renal collect ing systems on the delayed images. There is no retroperitoneal adenopathy. Bladder distends smoothly. There is no inguinal hernia. There are small enlarged bowel fluid levels down to the rectum. No evid ence of mechanical bowel obstruction. There is umbilical hernia contains fat and intermediate density consistent with recent surgery and pr obable hematoma. There is mild fat stranding. This area measures 3.5 cm. There are some sigmoid diver ticula without diverticulitis. Appendix appears normal. There is narrowing at L5-S1 disc. Lumbar vertebra have normal alignment. There is no compression frac ture. Posterior elements are intact. Bony pelvis is intact. The hip joints are intact. Sacroiliac kwame nts are normal. Abdominal aorta is atheromatous. IMPRESSION: Postsurgical changes at the umbilicus. Inflammatory process is possible. Large and small bowel fluid suggestive of ileus and diarrhea. Mild sigmoid diverticulosis.
[2021-11-09 00:09] VITALS: BP 123/69; PULSE 67; RESP 18
[2021-11-09] MEDS ORDERED: MAGNESIUM CITRATE 296 ML BOTTLE PO ONE (00:11)
[2021-11-09] MEDS ORDERED: GLYCERIN ADULT SUPPOSITORY 1 EACH RECTAL STA (00:11)
[2021-11-09] MEDS ORDERED: SENNOSIDES-DOCUSATE SODIUM 1 EACH TAB PO STA (00:11)
== END 2021-11-09 00:54 | disposition home or self-care (01) ==
LOC: EC 21:33
DX: K59.00 Constipation, unspecified (principal); R10.9 Unspecified abdominal pain; I10 Essential (primary) hypertension; K21.9 Gastro-esophageal reflux disease without esophagitis; E78.5 Hyperlipidemia, unspecified; Z79.82 Long term (current) use of aspirin; Z79.899 Other long term (current) drug therapy
CPT/HCPCS: 36415; 80053; 82150; 83605; 83690; 83735; 84100; 85025; 74177; 99284; 96374; 96375 ×2; 96361; J2765; J1885; C9113; Q9967

== ENCOUNTER → 2023-04-28 | Outpatient (CLI) | payer BC ==
--- NOTE | 2023-04-28 14:11 | P.SLEEP ---
History of Present Illness DATE: 04/28/2023 CONSULTATION/NEW PATIENT EVALUATION HISTORY OF PRESENT ILLNESS/SLEEP-WAKE EVALUATION: 72 year old gentleman had been evaluated in the sleep center for possible obstructive sleep apnea hypopnea syndrome. Patient has history of obstructive sleep apnea diagnosed in another institution about 20 years ago, was started on treatment with CPAP, but then shortly stopped treatment for different reason. SLEEP SCHEDULE: Usually sleep schedule from 9 -10 PM until 6:307:30 AM. FALLING ASLEEP: Usually no problems with falling asleep, no TV in bedroom. DURING SLEEP: Patient sleeps on the side position with snoring and witnessed episodes of stop breathing during the sleep. Patient wakes up from sleep 4 times with nocturia, heartburn and restless leg symptoms No history of hypnogogical hallucinations, sleep paralysis, or cataplexy. DURING THE DAY/WAKE STATE: In the morning patient wake up tired, falling asleep during the day. [place] sleepiness scale is 5. Usually patient takes 1 nap a day at 1 PM to 2 PM. PAST MEDICAL HISTORY: Coronary artery disease, hypertension, stroke, memory problems. PAST SURGICAL HISTORY: CABG for more arteries, right and left ankles surgery for fractures. MEDICATIONS: Amlodipine 10 mg once a day, rosuvastatin 40 mg once a day, lisinopril 20 mg twice a day, pantoprazole 40 mg once a day, metoprolol 25 mg twice a day, Montelucast 10 mg once a day. SOCIAL HISTORY: Positive for smoking for 40 pack years quit in 2020, alcohol consumption occasional. FAMILY HISTORY: Cancer. REVIEW OF SYSTEMS: Snoring, multiple awakenings from sleep, sleepiness during the day. No fevers. No double vision. No recent chest pain. No shortness of breath. No abdominal pain. No bleeding episodes. No blood in urine. No seizure episodes. PHYSICAL EXAMINATION: GENERAL: A pleasant patient without any distress. VITAL SIGNS: BP 136/78, HR 75, RR 16, weight 268.6 pounds, height 5 foot 10.5 i nches, body mass index 37.9. HEENT: PERRLA, EOMI. Evaluation of oropharynx showed tongue protrudes midline, low position of soft palate Mallampati 3. NECK: Supple. No JVD. Thyroid is not palpable. 21 inches in circumference. LUNGS: Clear to percussion and to auscultation. Good air exchange. No wheezing or rhonchi. HEART: S1, S2 regular. No murmurs, gallops or rubs. ABDOMEN: Soft and nontender. Bowel sounds are present. No organomegaly appreciated. Obese EXTREMITIES: No clubbing or cyanosis. KITCHEN PORTER: Awake, alert, and oriented x3. Cranial nerves 2 to 7 intact. There is no fasciculation or atrophy noted. No focal deficits observed. ASSESSMENT: 1. Snoring, witnessed episodes of stop breathing during the sleep, multiple awakenings from sleep, low position of soft palate, extremely wide neck 21 inches in circumference, history of obstructive sleep apnea in the past. Obstructive sleep apnea hypopnea syndrome. 2. Obesity, body mass index 37.9. 3. Coronary artery disease, status post CABG of 4 arteries. 4. Hypertension. 5 history of stroke. 6 . Memory problems. 7. Status post surgical treatment of ankles bilaterally. PLAN: 1. Polysomnography for evaluation of patient's breathing during sleep. 2. CPAP/BiPAP titration if sleep study confirms obstructive sleep apnea- hypopnea syndrome. 3. Preferable position during sleep on the side. 4. No driving if patient feels any sleepiness. Patient is aware of civil and criminal liability for unsafe driving. 5. Sleep hygiene with regular sleep time for at least 7.5-8 hours. 6. Watching and losing weight. Thank you very much for referring this patient for consultation. Sincerely, Piotr An MD, PhD, FAASM. Diplomat of [place] [employer], Sleep Medicine Board by [place] [employer] [place] [employer] Special Services Coordinator of [facility] [place] Past Medical History Past Medical History: CVA/TIA, GERD/Reflux, Hearing Disorder / Deafness, Hyperlipidemia, Hypertension, Musculoskeletal Disorder Additional Past Medical History / Comment(s): TIA 8 yrs ago-no residual effects, fell & fx. left ankle 09-13-18, in half cast History of Any Multi-Drug Resistant Organisms: None Reported Past Surgical History: Coronary Bypass/CABG, Hernia Repair, Orthopedic Surgery Additional Past Surgical History / Comment(s): CYST REMOVED FROM LEFT LEG, repair deviated septum, ORIF right fib., quad bypass 2017 @[facility], hernia repair 11/10 Past Anesthesia/Blood Transfusion Reactions: No Reported Reaction Past Psychological History: No Psychological Hx Reported Smoking Status: Never smoker Past Alcohol Use History: Rare Past Drug Use History: None Reported - Past Family History Father Family Medical History: Myocardial Infarction ([place]) Additional Family Medical History / Comment(s): at 55 from [place] Brother(s) Family Medical History: No Reported History Additional Family Medical History / Comment(s): Patient has 2 brothers and is unsure of their past mental history. Sister(s) Additional Family Medical History / Comment(s): Patient had 7 sisters. 3 sisters have , one from ovarian cancer at age 44, 2 from breast cancer 1 at age 60 and the other at age 55. Mother Family Medical History: No Reported History Medications and Allergies Home Medications Medication Instructions Recorded Confirmed Type lisinopriL [Zestril] 20 mg PO BID 06/16/16 10/06/18 History Metoprolol Tartrate [Lopressor] 25 mg PO BID #60 tab 04/13/17 10/06/18 Rx Nitroglycerin Sl Tabs [Nitrostat] 0.4 mg SUBLINGUAL Q5M PRN #25 tab 04/13/17 10/06/18 Rx amLODIPine [Norvasc] 5 mg PO DAILY #30 tab 04/13/17 10/06/18 Rx Aspirin 325 mg PO DAILY 08/01/17 10/06/18 History Pantoprazole [Protonix] 40 mg PO DAILY #14 tablet. 08/01/17 10/06/18 Rx Ezetimibe [Zetia] 10 mg PO DAILY 10/05/18 10/06/18 History HYDROcodone/APAP 10-325MG [[place] 1 tab PO Q6HR PRN 10/05/18 10/06/18 History 10-325] Rosuvastatin Calcium [Crestor] 40 mg PO HS 10/05/18 10/06/18 History Aspirin 325 mg PO DAILY #14 tab 10/06/18 Rx Docusate [Colace] 100 mg PO BID #60 capsule 10/06/18 Rx HYDROcodone/APAP 10-325MG [[place] 1 tab PO Q6HR PRN 7 Days #40 tab 10/06/18 Rx 10-325] Allergies Allergy/AdvReac Type Severity Reaction Status Date / Time No Known Allergies Allergy Verified 11/08/21 22:06 Sleep Note - Sleep Note Sleep Note: Temperature: Pulse Rate: Respiratory Rate: Blood Pressure: SpO2: Height: Weight: BMI: Neck Circumference:
== END ==
LOC: 3 N SLEEP 13:31
PROVIDERS: ATTEND Internal Medicine
DX: G47.33 Obstructive sleep apnea (adult) (pediatric) (principal); I10 Essential (primary) hypertension; E66.9 Obesity, unspecified; I25.10 Atherosclerotic heart disease of native coronary artery without angina pectoris; R41.3 Other amnesia; F17.200 Nicotine dependence, unspecified, uncomplicated; Z68.37 Body mass index [BMI] 37.0-37.9, adult; Z98.890 Other specified postprocedural states; Z86.73 Personal history of transient ischemic attack (TIA), and cerebral infarction without residual deficits; Z95.1 Presence of aortocoronary bypass graft; Z99.89 Dependence on other enabling machines and devices
CPT/HCPCS: 99211

== ENCOUNTER 2023-06-07 19:43 | Outpatient (CLI) | payer BC | END 2023-06-08 05:40 | disposition home or self-care (01) | LOC: 3 N SLEEP 19:43 | PROVIDERS: ATTEND Internal Medicine | DX: G47.33 Obstructive sleep apnea (adult) (pediatric) (principal); F17.200 Nicotine dependence, unspecified, uncomplicated | CPT/HCPCS: 95810 ==

== ENCOUNTER 2023-07-07 19:38 | Outpatient (CLI) | payer BC ==
--- NOTE | 2023-07-13 18:43 | P.PCN ---
Description of Procedure: CLINICAL: Titration with positive air pressure has been done for correction of respiratory abnormalities during sleep. DESCRIPTION OF PROCEDURE: The standard montage for clinical polysomnography included the electroencephalogram, the electrocardiogram, the mentalis surface electromyography and Lead II cardiography. The respiratory battery consisted of measurements of nasal /buccal air flow, pressure transducer measurements from the nose, thoracic and /or abdominal effort and intercostal surface electromyography. Video monitoring has been done to check for any parasomnia events. Nocturnal oxyhemoglobin saturations were obtained by finger oximetry. Step-tobin titration with positive airway pressure was utilized to control respiratory events. Raw data of sleep recording has been reviewed and is adequate. RESULTS: Sleep efficiency was decreased to 79.3 %. Latency to sleep onset was normal 12.5 minutes.]. Sleep architecture showed stage N1 was increased to 11.2 %, Delta sleep was extremely short 0.6 %, REM sleep was normal 23.3 %. Heart rate was minimum 50 BPM, maximum 58 BPM, average 54 BPM. EMG showed 55.3 periodic limb movements per hour with 4 micriarousals per hour. PAP titration have been done with CPAP up to the pressure 13 cm H2O. The best results were at the pressure 12 cm H2O. Apnea hypopnea index reduced to 8.4. IMPRESSION: 1. Severe Obstructive sleep apnea hypopnea syndrome improved with PAP treatment. 2. Significant periodic limb movements have been documented. Please see other impressions from consultation. PLAN: 1. The patient will have treatment with positive air pressure equipment with the level of pressure AutoPAP 7-16 cm H2O and should use it every night for the whole night. 2. Watching and losing weight. 3. Sleep hygiene with regular time in bed for at least 8 hours. 4. No driving if feeling any sleepiness. 5. I will see the patient for follow up visit to explain the results of the test, recommendations, check compliance with treatment and make any necessary adjustment related to mask fitting, pressure and humidification. 6. Please check iron profile including ferritin level. Low level of iron may increase risk for periodic limb movements Thank you very much for allowing me to participate in the management of your patient. Sincerely, Piotr An MD, PhD, FAASM Diplomat of [place] [employer] Sleep Medicine Board of [place] [employer] Medicine Mica Plate Layer Hand of [facility] [place]
== END 2023-07-08 06:05 | disposition home or self-care (01) ==
LOC: 3 N SLEEP 19:38
PROVIDERS: ATTEND Internal Medicine
DX: G47.33 Obstructive sleep apnea (adult) (pediatric) (principal); F17.200 Nicotine dependence, unspecified, uncomplicated
CPT/HCPCS: 95811

== ENCOUNTER → 2023-09-21 | Outpatient (CLI) | payer BC ==
--- NOTE | 2023-09-21 14:39 | P.PN ---
Subjective DATE: 09/21/2023 FOLLOW UP VISIT. Patient with obstructive sleep apnea hypopnea syndrome return to sleep center for follow-up visit. Recently patient had sleep study which documented obstructive sleep apnea hypopnea syndrome. Patient was initiated on PAP therapy and today is first visit after treatment was started. Patient was able to use PAP equipment every night for the whole night. The patient does not have significant problems with the mask, PAP pressure and humidification. [place] sleepiness scale is 3, which is normal. I checked information from PAP unit. PAP unit pressure 7-16, average 13.4 cm H2O. Usage is 100 % for more then 4 hours, average 6.75 hours per night. Leak is significantly increased to 60.3 l/m. Apnea Hypopnea Index is slightly increased 8.7, which showed significant improvements comparing with apnea-hypopnea index during diagnostic polysomnogram on it was 48. MEDICATIONS:1. Amlodipine 10 mg once a day 2. Crestor 40 mg once a day 3. Lisinopril 20 mg twice a day 4. Pantoprazole 40 mg once a day 5. Metoprolol 25 mg twice a day 6. Montelukast 10 mg once a day During physical exam: GENERAL: A pleasant patient without any distress. VITAL SIGNS: BP 123/64, HR 67, RR 20 , weight 272.2, temperature 98.2, oxygen saturation at room air 94% . HEENT: PERRLA, EOMI.low position of soft palate, Mallapati 3 . NECK: Supple. No JVD. LUNGS: Clear to percussion and to auscultation. Good air exchange. No wheezing or rhonchi. HEART: S1, S2 regular. ABDOMEN: Soft and nontender., Slightly obese EXTREMITIES: No clubbing or cyanosis. CAP PARTS CUTTER: Awake, alert, and oriented x3. No focal deficit. I changed pressure in CPAP unit to the range 7-17 cm of water. Impressions: 1. Obstructive sleep apnea-hypopnea syndrome. Patient demonstrated great compliance with treatment, benefiting from treatment. 2. Obesity. 3. Hypertension. 4. History of stroke. 5. Coronary artery disease, status post CABG for 4 arteries. 6. History of memory problems. Plan: 1. Continue using PAP equipment every night for the whole night. 2. To change air filter at least 1-2 times per month. 3. PAP unit should stay lower then position of the head. 4. Advised patient to remove all remaining water from humidifier canister daily and make it dry after each usage. Refill canister with fresh distilled water before each usage. 5. Sleep hygiene with regular time in bed for at least 8 hours. 6. Precautions related to driving. No driving if feel any sleepiness. 7. I will maintain prescription for PAP supplies including mask, tube, filters. 8. Follow up visit in 6 months or earlier if patient has any problems. 9. Watching and losing weight. Thank you very much for allowing me to participate in the management of your patient. Piotr An MD, PhD, FAASM. Diplomat of [place] Board of Sleep Medicine, Sleep Medicine Board by [place] Board of Internal Medicine [place] Examiner of [facility] [place]
== END ==
LOC: 3 N SLEEP 14:07
PROVIDERS: ATTEND Internal Medicine
DX: G47.33 Obstructive sleep apnea (adult) (pediatric) (principal); E66.9 Obesity, unspecified; I10 Essential (primary) hypertension; I63.9 Cerebral infarction, unspecified; I25.10 Atherosclerotic heart disease of native coronary artery without angina pectoris; F17.200 Nicotine dependence, unspecified, uncomplicated; Z95.1 Presence of aortocoronary bypass graft; Z86.69 Personal history of other diseases of the nervous system and sense organs; Z79.82 Long term (current) use of aspirin; Z79.899 Other long term (current) drug therapy
CPT/HCPCS: 99212

== ENCOUNTER → 2024-04-18 | Outpatient (CLI) | payer BC ==
[2024-04-18 15:09] VITALS: BP 146/75; PULSE 66; RESP 16; TEMP 98.2
--- NOTE | 2024-04-18 15:28 | P.PROGSL ---
Subjective DATE: 04/18/2024 FOLLOW UP VISIT. Patient with obstructive sleep apnea hypopnea syndrome return to sleep center for follow-up visit. Information from previous visit have been reviewed. Patient is using PAP equipment every night for the whole night. Patient did not received new mask for about 9 months by his decision. The patient does not have significant problems with the mask, PAP unit and humidification. [place] sleepiness scale is 0. I checked information from PAP unit. PAP unit pressure 7-17 cm H2O. Usage is 100% for more then 4 hours, average 5.4 hours per night. Leak is significantly high 62 l/m. Apnea Hypopnea Index is increased to 11.3, which is normal. MEDICATIONS have been reviewed, please see below. During physical exam: GENERAL: A pleasant patient without any distress. VITAL SIGNS: Please see below, weight is 275 lbs. HEENT: PERRLA, EOMI.low position of soft palate, Mallapati 3. NECK: Supple. No JVD. LUNGS: Clear to percussion and to auscultation. Good air exchange. No wheezing or rhonchi. HEART: S1, S2 regular. ABDOMEN: Soft and nontender. Obese EXTREMITIES: No clubbing or cyanosis. ASSET PROTECTION PROFESSIONAL: Awake, alert, and oriented x3. No focal deficit. Impressions: 1. Obstructive sleep apnea-hypopnea syndrome. Patient demonstrated great compliance with treatment, benefiting from treatment. 2. Obesity, BMI 39.4. 3. Hypertension. 4. History of stroke. 5. Coronary artery disease, status post CABG 4 4 arteries. 6. History of memory problems. Plan: 1. Continue using PAP equipment every night for the whole night. To replace CPAP mask immediately. 2. Sleep hygiene with regular time in bed for at least 7.5-8 hours 3. PAP unit should stay lower then position of the head. 4. Advised patient to remove all remaining water from humidifier canister daily and make it dry after each usage. Refill canister with fresh distilled water before each usage. 5. Watching and losing weight. 6. Precautions related to driving. No driving if feel any sleepiness. 7. I will maintain prescription for PAP supplies including mask, tube, filters. 8. Follow up visit in 4 months or earlier if patient has any problems. Thank you very much for allowing me to participate in the management of your patient. Piotr An MD, PhD, FAASM. Diplomat of [place] [employer] Sleep Medicine, Sleep Medicine Board by [place] [employer] Internal Medicine Forensic Artist of [facility] [place] Objective - Vital Signs Vital Signs: Vital Signs Temp 98.2 F 04/18/24 15:08 Pulse 66 04/18/24 15:08 Resp 16 04/18/24 15:08 BP 146/75 04/18/24 15:08 Pulse Ox 95 04/18/24 15:08 FiO2 Intake & Output 04/17/24 04/18/24 04/18/24 18:59 06:59 18:59 Weight 124.738 kg Home Medications: Home Medications Medication Instructions Recorded Confirmed Type lisinopriL [Zestril] 20 mg PO BID 06/16/16 04/18/24 History Metoprolol Tartrate [Lopressor] 25 mg PO BID #60 tab 04/13/17 04/18/24 Rx Nitroglycerin Sl Tabs [Nitrostat] 0.4 mg SUBLINGUAL Q5M PRN #25 tab 04/13/17 10/06/18 Rx amLODIPine [Norvasc] 5 mg PO DAILY #30 tab 04/13/17 10/06/18 Rx Aspirin 325 mg PO DAILY 08/01/17 10/06/18 History Pantoprazole [Protonix] 40 mg PO DAILY #14 tablet. 08/01/17 10/06/18 Rx Ezetimibe [Zetia] 10 mg PO DAILY 10/05/18 04/18/24 History HYDROcodone/APAP 10-325MG [[place] 1 tab PO Q6HR PRN 10/05/18 10/06/18 History 10-325] Rosuvastatin Calcium [Crestor] 40 mg PO HS 10/05/18 04/18/24 History Aspirin 325 mg PO DAILY #14 tab 10/06/18 Rx Docusate [Colace] 100 mg PO BID #60 capsule 10/06/18 Rx HYDROcodone/APAP 10-325MG [[place] 1 tab PO Q6HR PRN 7 Days #40 tab 10/06/18 Rx 10-325] Aspirin [Adult Low Dose Aspirin EC] 81 mg PO DAILY 04/18/24 04/18/24 History Loratadine 10 mg PO DAILY 04/18/24 04/18/24 History Montelukast Sodium 10 mg PO DAILY 04/18/24 04/18/24 History
== END ==
LOC: 3 N SLEEP 14:41
PROVIDERS: ATTEND Internal Medicine
CPT/HCPCS: 99212

== ENCOUNTER → 2024-08-08 | Outpatient (CLI) | payer BC ==
[2024-08-08 11:52] VITALS: BP 163/52; PULSE 72; RESP 16; TEMP 98.2
--- NOTE | 2024-08-08 12:11 | P.PROGSL ---
Subjective DATE: 08/08/2024 FOLLOW UP VISIT. Patient with obstructive sleep apnea hypopnea syndrome return to sleep center for follow-up visit. Information from previous visit have been reviewed. Patient is using PAP equipment every night for the whole night, getting PAP supplies in time. The patient does not have significant problems with the mask, PAP unit and humidification. [place] sleepiness scale is 4, which is normal. I checked information from PAP unit. PAP unit pressure 7-17, average 15.4 cm H2O. Usage is 100% for more then 4 hours, average 7.3 hours per night. Leak is increased to 46 l/m. Apnea Hypopnea Index is increased to 13.7. MEDICATIONS have been reviewed, please see below. During physical exam: GENERAL: A pleasant patient without any distress. VITAL SIGNS: Please see below, weight is 278, BMI 39.8 lbs. HEENT: PERRLA, EOMI.low position of soft palate, Mallapati 3 . NECK: Supple. No JVD. LUNGS: Clear to percussion and to auscultation. Good air exchange. No wheezing or rhonchi. HEART: S1, S2 regular. ABDOMEN: Soft and nontender. Obese EXTREMITIES: No clubbing or cyanosis. LABORATORY TECHNICAL SPECIALIST: Awake, alert, and oriented x3. No focal deficit. Impressions: 1. Obstructive sleep apnea-hypopnea syndrome. Patient demonstrated great compliance with treatment, benefiting from treatment. Apnea hypopnea index increased. 2. Obesity, BMI 39.8, patient increased weight on 3 pounds comparing with previous visit. 3. Hypertension. 4. History of stroke. 5. History of memory problems. 6. Coronary artery disease, status post CABG for 4 arteries. I changed regimen in AutoPap unit to the range 7-19 cm of water. Plan: 1. Continue using PAP equipment every night for the whole night. 2. Sleep hygiene with regular time in bed for at least 7.5-8 hours 3. PAP unit should stay lower then position of the head. 4. Advised patient to remove all remaining water from humidifier canister daily and make it dry after each usage. Refill canister with fresh distilled water before each usage. 5. Watching and losing weight. 6. Precautions related to driving. No driving if feel any sleepiness. 7. I will maintain prescription for PAP supplies including mask, tube, filters. 8. Follow up visit in 3 months or earlier if patient has any problems. Thank you very much for allowing me to participate in the management of your patient. Piotr An MD, PhD, FAASM. Diplomat of [place] [employer] Sleep Medicine, Sleep Medicine Board by [place] [employer] Medicine Garage Manager of [facility] [place] cc: Kathy Colon SKIN DIVERAndrew Objective - Vital Signs Vital Signs: Vital Signs Temp 98.2 F 08/08/24 11:49 Pulse 72 08/08/24 11:49 Resp 16 08/08/24 11:49 BP 163/52 08/08/24 11:49 Pulse Ox 95 08/08/24 11:49 FiO2 Intake & Output 08/07/24 08/08/24 08/08/24 18:59 06:59 18:59 Weight 126.099 kg Home Medications: Home Medications Medication Instructions Recorded Confirmed Type lisinopriL [Zestril] 20 mg PO BID 06/16/16 08/08/24 History Metoprolol Tartrate [Lopressor] 25 mg PO BID #60 tab 04/13/17 08/08/24 Rx Nitroglycerin Sl Tabs [Nitrostat] 0.4 mg SUBLINGUAL Q5M PRN #25 tab 04/13/17 10/06/18 Rx amLODIPine [Norvasc] 5 mg PO DAILY #30 tab 04/13/17 08/08/24 Rx Aspirin 325 mg PO DAILY 08/01/17 10/06/18 History Pantoprazole [Protonix] 40 mg PO DAILY #14 tablet. 08/01/17 10/06/18 Rx Ezetimibe [Zetia] 10 mg PO DAILY 10/05/18 08/08/24 History HYDROcodone/APAP 10-325MG [[place] 1 tab PO Q6HR PRN 10/05/18 10/06/18 History 10-325] Rosuvastatin Calcium [Crestor] 40 mg PO HS 10/05/18 08/08/24 History Aspirin 325 mg PO DAILY #14 tab 10/06/18 Rx Docusate [Colace] 100 mg PO BID #60 capsule 10/06/18 Rx HYDROcodone/APAP 10-325MG [[place] 1 tab PO Q6HR PRN 7 Days #40 tab 10/06/18 Rx 10-325] Aspirin [Adult Low Dose Aspirin EC] 81 mg PO DAILY 04/18/24 08/08/24 History Loratadine 10 mg PO DAILY 04/18/24 08/08/24 History Montelukast Sodium 10 mg PO DAILY 04/18/24 08/08/24 History
== END ==
LOC: 3 N SLEEP 11:32
PROVIDERS: ATTEND Internal Medicine
DX: G47.33 Obstructive sleep apnea (adult) (pediatric) (principal); E66.9 Obesity, unspecified; Z68.39 Body mass index [BMI] 39.0-39.9, adult; I10 Essential (primary) hypertension; Z86.79 Personal history of other diseases of the circulatory system; I25.810 Atherosclerosis of coronary artery bypass graft(s) without angina pectoris; Z99.89 Dependence on other enabling machines and devices; F17.210 Nicotine dependence, cigarettes, uncomplicated
CPT/HCPCS: 99212